=== PATIENT | male | born 1950 | race Caucasian/White ===

== ENCOUNTER 2017-08-14 13:19 | Inpatient (IN) ==
[2017-08-14] MEDS ORDERED: 0.9 % Sodium Chloride 1,000 ML IVC ONE (13:32)
--- NOTE | 2017-08-14 13:35 | Emergency Department Note ---
Disposition Clinical Impression: Hypotension, Frail elderly, Kidney stones, Pulmonary nodule, Pneumonia, Anemia , Renal insufficiency, Dehydration, Aortic aneurysm, Hematuria, Elevated troponin, Cerebrovascular disease Disposition: Admitted As Inpatient General Adult HPI - General Chief complaint: ED Weakness Stated complaint: Weakness Time Seen by Provider: 08/14/17 13:27 - History of Present Illness HPI Narrative: 66-year-old male reports emergency department with his relatives. Per report the patient usually lives in a fdc, he recently fell and fractured his left hip and went [facility] where they reportedly diagnosed pneumonia, surgery was performed on the hip on the left. The patient went back to the fdc, apparently he is feeling worse in the fdc called EMS, the family members report the patient has been weaker since his surgery. He reported he can usually feed himself with his right hand but is unable to do so now, EMS notes the patient's blood pressure was in the 70s on arrival. The family is concerned because the patient is unable to perform usual activities for him, significant weakness is reported. Recent pneumonia also a concern per the family, as well as a recent surgery for fractured hip. They report the patient would not allow a CAT scan of the head after the fall. They are concerned about the patient's general mental status. There is no history of bleeding. No reports of chest pain or shortness of breath coughing up blood or syncope. The patient usually has left upper extremity weakness status post previous CVA. The patient is somewhat demented per the family's history. - Related Data Home Medications Medication Instructions Recorded Confirmed Acetaminophen [Tylenol] 325 mg PO Q6HR PRN 08/14/17 08/14/17 Amoxicillin/Clavulanate [Augmentin] 875 mg PO BIDWM 08/14/17 08/14/17 Aspirin 81 mg PO DAILY 08/14/17 08/14/17 Atorvastatin [Lipitor] 40 mg PO HS 08/14/17 08/14/17 Clopidogrel [Plavix] 75 mg PO DAILY 08/14/17 08/14/17 Fluticasone/Salmeterol [Advair 1 puff IH BID 08/14/17 08/14/17 250-50 Diskus] Gabapentin [Neurontin] 300 mg PO BID 08/14/17 08/14/17 HYDROcodone/Acet 5/325 mg [[place] 1 tab PO Q6H PRN 08/14/17 08/14/17 5-325 mg] Insulin ASPART [NovoLOG] 0 unit SQ TID PRN 08/14/17 08/14/17 Ipratropium/Albuterol Neb [Duoneb] 3 ml IH Q6HR 08/14/17 08/14/17 Levofloxacin [Levaquin] 500 mg PO Q24H 08/14/17 08/14/17 Linezolid [Zyvox] 600 mg PO BID 08/14/17 08/14/17 Lisinopril [Zestril] 10 mg PO DAILY 08/14/17 08/14/17 Memantine HCl 10 mg PO BID 08/14/17 08/14/17 Nebivolol HCl [Bystolic] 10 mg PO DAILY 08/14/17 08/14/17 Oxybutynin Chloride [Ditropan Xl] 5 mg PO DAILY 08/14/17 08/14/17 Polyethylene Glycol 3350 [MiraLAX 17 gm PO DAILY 08/14/17 08/14/17 Powder Bulk 17.9 Oz] Tamsulosin [Flomax] 0.4 mg PO DAILY 08/14/17 08/14/17 Tramadol HCl [Ultram] 50 mg PO Q4H PRN 08/14/17 08/14/17 cloNIDine HCl [Clonidine HCl] 0.2 mg PO TID 08/14/17 08/14/17 diazePAM [Valium] 5 mg PO TID PRN 08/14/17 08/14/17 Allergies Allergy/AdvReac Type Severity Reaction Status Date / Time No Known Allergies Allergy Verified 06/22/15 23:58 All systems ED: reviewed and negative except as stated. Past Medical History - Past Medical History Medical history: Reports: COPD, CVA, dementia Surgical history: Reports: cholecystectomy Psychiatric history: Reports: anxiety, depression - Social History Smoking Status: Current every day smoker Smokeless Tobacco Status: No Alcohol use: Reports: none Drug use: Reports: none Physical Exam - General Limitations: other (Dementia) General appearance: alert, in no apparent distress - Head Head exam: atraumatic, normocephalic, normal inspection - Eye Eye exam: Present: normal appearance, PERRL, EOMI. Absent: scleral icterus, conjunctival injection, miosis, mydriasis - ENT ENT exam: normal exam, normal oropharynx, mucous membranes moist - Neck Neck exam: Present: normal inspection, full ROM, trachea midline - Chest Chest inspection: Present: normal inspection, symmetric chest wall rise. Absent : tenderness - Respiratory Respiratory exam: Present: normal lung sounds bilaterally. Absent: respiratory distress, wheezes, accessory muscle use, prolonged expiratory phase - Cardiovascular Cardiovascular exam: Present: regular rate, normal rhythm, normal heart sounds - Abdominal Exam Abdominal exam: Present: soft, Non-Tender, normal bowel sounds. Absent: tenderness, distention, guarding, rebound, rigidity, trauma - Extremities Exam Extremities exam: Present: full ROM, other (Post surgical scar left hip without bleeding or evidence of asia infection.). Absent: tenderness, normal capillary refill, pedal edema, joint swelling, calf tenderness - Expanded Lower Extremity Exam Neurovascular/Tendon exam: Absent: normal capillary refill, tendon deficit, extremity cold to touch, pallor - Back Exam Back exam: Present: normal inspection, full ROM. Absent: tenderness, CVA tenderness (R), CVA tenderness (L), vertebral tenderness - Neurological Exam Neurological exam: Present: alert, CN II-XII intact, motor sensory deficit ( Left upper extremity weakness noted, chronic per family.) - Psychiatric Psychiatric exam: Present: normal affect - Skin Skin exam: Present: warm, dry, intact, normal color. Absent: rash, cyanosis, diaphoresis, erythema, pallor, mottled Course Vital Signs Temperature 98.1 F 08/14/17 13:26 Pulse Rate 61 08/14/17 13:26 Respiratory Rate 12 08/14/17 13:26 Blood Pressure 97/58 08/14/17 13:26 O2 Sat by Pulse Oximetry 100 08/14/17 13:26 Temperature 98.1 F 08/14/17 13:26 Pulse Rate 78 08/14/17 16:10 Respiratory Rate 14 08/14/17 16:10 Blood Pressure 163/74 08/14/17 16:10 O2 Sat by Pulse Oximetry 96 08/14/17 16:10 Oxygen Delivery Oxygen Delivery Nasal Cannula Medical Decision Making - [facility] Narrative Medical decision making narrative: The patient is frail and elderly, he recently had hip surgery, he appears to have residual pneumonia, he has been hypotensive, there is an element of renal insufficiency and/or dehydration, he is anemic and has significant hematuria, the patient was given IV fluids, his initial blood pressure was in the 70s, subsequently a raised in the 110 range. He also has an elevated troponin. Aspirin was ordered as well as Zosyn and vancomycin and Levaquin. The patient has not been describing chest pain, he does have a history of cerebrovascular disease in the family is concerned regarding the patient's weakness and inability to swallow well. The patient appears to be stable. Based on his multiple comorbidities, recent hospitalization, multiple abnormal findings, and significant hypertension, I thought it be appropriate to admit the patient to the hospital. I discussed the case with the hospitalist on-call who has accepted the patient to their care. - Lab Data Lab results reviewed: Yes I reviewed the patient's lab results. Result diagrams: 08/14/17 14:01 08/14/17 14:01 Lab Results 08/14/17 08/14/17 08/14/17 Range/Units 13:29 14:01 14:01 WBC 7.0 (4.3-11.1) K/mcL RBC 3.41 L (4.19-5.50) M/mcL Hgb 10.2 L (12.9-16.9) g/dL Hct 31.1 L (37.5-50.1) % MCV 91.2 (83.0-100.0) fL MCH 29.9 (28.0-33.3) pg MCHC 32.8 (31.6-35.5) g/dL RDW 14.0 (11.5-14.5) % Plt Count 176 (140-400) K/mcL MPV 8.6 L (9.4-12.4) fL Immature Gran % 0.6 (0-4) % Seg Neutrophils % 74.5 % Lymphocytes % 12.8 % Monocytes % 8.8 % Eosinophils % 3.0 % Basophils % 0.3 % Neutrophils # 5.2 (1.6-8.9) K/mcL Lymphocytes # 0.9 (0.6-4.6) K/mcL Monocytes # 0.6 (0.0-1.3) K/mcL Eosinophils # 0.2 (0.0-0.6) K/mcL Basophils # 0.0 (0.0-0.2) K/mcL PT (9.4-12.1) Seconds INR APTT (26.0-36.0) Seconds Sodium 139 (136-145) mEq/L Potassium 4.2 (3.5-4.5) mEq/L Chloride 103 (98-109) mEq/L Carbon Dioxide 26 (19-29) mEq/L BUN 45 H (8-26) mg/dL Creatinine 1.85 H (0.72-1.25) mg/dL Est GFR ( Amer) 45 L (> 60) Est GFR (Non-Af Amer) 37 L (> 60) BUN/Creatinine Ratio 24 (6-26) Glucose 156 H (70-99) mg/dL POC Glucose 157 H (58-89) Calculated Osmolality 303 H (280-300) Lactic Acid (0.5-2.2) mmol/L Calcium 8.7 (8.6-10.8) mg/dL Total Bilirubin 0.7 (0.2-1.2) mg/dL AST 30 (5-34) Units/L ALT 10 (0-55) Units/L Alkaline Phosphatase 67 (38-126) Units/L Troponin I (0-0.03) ng/mL C-Reactive Protein (Less than 5) mg/L Serum Total Protein 6.3 (6.0-8.3) g/dL Albumin 2.7 L (3.5-5.0) g/dL Globulin 3.6 H (2.4-3.5) g/dL Albumin/Globulin Ratio 0.8 L (1.1-2.2) Urine Color (Yellow) Urine Clarity (Clear) Urine pH (5.0-8.0) pH Units Ur Specific [place] (1.010-1.025) Urine Protein (Neg-Trace) mg/dL Urine Glucose (UA) (Normal) mg/dL Urine Ketones (Negative) mg/dL Urine Blood (Negative) Urine Nitrite (Negative) Urine Bilirubin (Negative) Urine Urobilinogen (Normal) mg/dL Ur Leukocyte Esterase (Negative) Urine Microscopic RBC (0-3) per hpf Urine Microscopic WBC (0-3) per hpf Ur Squamous Epith Cells (None-Few) per lpf Urine Bacteria (None-Few) per hpf Hyaline Casts (None-Few) per lpf Ur Culture Indicated? (NO) 08/14/17 08/14/17 08/14/17 Range/Units 14:01 14:01 14:01 WBC (4.3-11.1) K/mcL RBC (4.19-5.50) M/mcL Hgb (12.9-16.9) g/dL Hct (37.5-50.1) % MCV (83.0-100.0) fL MCH (28.0-33.3) pg MCHC (31.6-35.5) g/dL RDW (11.5-14.5) % Plt Count (140-400) K/mcL MPV (9.4-12.4) fL Immature Gran % (0-4) % Seg Neutrophils % % Lymphocytes % % Monocytes % % Eosinophils % % Basophils % % Neutrophils # (1.6-8.9) K/mcL Lymphocytes # (0.6-4.6) K/mcL Monocytes # (0.0-1.3) K/mcL Eosinophils # (0.0-0.6) K/mcL Basophils # (0.0-0.2) K/mcL PT (9.4-12.1) Seconds INR APTT (26.0-36.0) Seconds Sodium (136-145) mEq/L Potassium (3.5-4.5) mEq/L Chloride (98-109) mEq/L Carbon Dioxide (19-29) mEq/L BUN (8-26) mg/dL Creatinine (0.72-1.25) mg/dL Est GFR ( Amer) (> 60) Est GFR (Non-Af Amer) (> 60) BUN/Creatinine Ratio (6-26) Glucose (70-99) mg/dL POC Glucose (58-89) Calculated Osmolality (280-300) Lactic Acid 1.0 (0.5-2.2) mmol/L Calcium (8.6-10.8) mg/dL Total Bilirubin (0.2-1.2) mg/dL AST (5-34) Units/L ALT (0-55) Units/L Alkaline Phosphatase (38-126) Units/L Troponin I 0.07 H* (0-0.03) ng/mL C-Reactive Protein 59 H (Less than 5) mg/L Serum Total Protein (6.0-8.3) g/dL Albumin (3.5-5.0) g/dL Globulin (2.4-3.5) g/dL Albumin/Globulin Ratio (1.1-2.2) Urine Color (Yellow) Urine Clarity (Clear) Urine pH (5.0-8.0) pH Units Ur Specific [place] (1.010-1.025) Urine Protein (Neg-Trace) mg/dL Urine Glucose (UA) (Normal) mg/dL Urine Ketones (Negative) mg/dL Urine Blood (Negative) Urine Nitrite (Negative) Urine Bilirubin (Negative) Urine Urobilinogen (Normal) mg/dL Ur Leukocyte Esterase (Negative) Urine Microscopic RBC (0-3) per hpf Urine Microscopic WBC (0-3) per hpf Ur Squamous Epith Cells (None-Few) per lpf Urine Bacteria (None-Few) per hpf Hyaline Casts (None-Few) per lpf Ur Culture Indicated? (NO) 08/14/17 08/14/17 Range/Units 14:01 14:27 WBC (4.3-11.1) K/mcL RBC (4.19-5.50) M/mcL Hgb (12.9-16.9) g/dL Hct (37.5-50.1) % MCV (83.0-100.0) fL MCH (28.0-33.3) pg MCHC (31.6-35.5) g/dL RDW (11.5-14.5) % Plt Count (140-400) K/mcL MPV (9.4-12.4) fL Immature Gran % (0-4) % Seg Neutrophils % % Lymphocytes % % Monocytes % % Eosinophils % % Basophils % % Neutrophils # (1.6-8.9) K/mcL Lymphocytes # (0.6-4.6) K/mcL Monocytes # (0.0-1.3) K/mcL Eosinophils # (0.0-0.6) K/mcL Basophils # (0.0-0.2) K/mcL PT 13.3 H (9.4-12.1) Seconds INR 1.2 APTT 31.9 (26.0-36.0) Seconds Sodium (136-145) mEq/L Potassium (3.5-4.5) mEq/L Chloride (98-109) mEq/L Carbon Dioxide (19-29) mEq/L BUN (8-26) mg/dL Creatinine (0.72-1.25) mg/dL Est GFR ( Amer) (> 60) Est GFR (Non-Af Amer) (> 60) BUN/Creatinine Ratio (6-26) Glucose (70-99) mg/dL POC Glucose (58-89) Calculated Osmolality (280-300) Lactic Acid (0.5-2.2) mmol/L Calcium (8.6-10.8) mg/dL Total Bilirubin (0.2-1.2) mg/dL AST (5-34) Units/L ALT (0-55) Units/L Alkaline Phosphatase (38-126) Units/L Troponin I (0-0.03) ng/mL C-Reactive Protein (Less than 5) mg/L Serum Total Protein (6.0-8.3) g/dL Albumin (3.5-5.0) g/dL Globulin (2.4-3.5) g/dL Albumin/Globulin Ratio (1.1-2.2) Urine Color Dark Yellow (Yellow) Urine Clarity Clear (Clear) Urine pH 6.0 (5.0-8.0) pH Units Ur Specific [place] 1.025 (1.010-1.025) Urine Protein 100 H (Neg-Trace) mg/dL Urine Glucose (UA) Normal (Normal) mg/dL Urine Ketones Trace H (Negative) mg/dL Urine Blood Large H (Negative) Urine Nitrite Negative (Negative) Urine Bilirubin Small H (Negative) Urine Urobilinogen Normal (Normal) mg/dL Ur Leukocyte Esterase Negative (Negative) Urine Microscopic RBC TNTC H (0-3) per hpf Urine Microscopic WBC 5-15 H (0-3) per hpf Ur Squamous Epith Cells Many H (None-Few) per lpf Urine Bacteria None Seen (None-Few) per hpf Hyaline Casts Few (None-Few) per lpf Ur Culture Indicated? NO (NO) - Radiology Data Radiology results reviewed: Yes I reviewed the patient's radiology results.
[2017-08-14 14:12] LABS: Basophils % 0.3 %; Eosinophils # 0.2 K/mcL (0.0-0.6); Hematocrit 31.1 % (37.5-50.1); Hemoglobin 10.2 g/dL (12.9-16.9); Immature Granulocytes % 0.6 % (0-4); Lymphocytes # 0.9 K/mcL (0.6-4.6); Lymphocytes % 12.8 %; Mean Corpuscular HGB Conc 32.8 g/dL (31.6-35.5); Mean Corpuscular Hemoglobin 29.9 pg (28.0-33.3); Mean Corpuscular Volume 91.2 fL (83.0-100.0); Mean Platelet Volume 8.6 fL (9.4-12.4); Monocytes # 0.6 K/mcL (0.0-1.3); Monocytes % 8.8 %; Neutrophils # 5.2 K/mcL (1.6-8.9); Platelet Count 176 K/mcL (140-400); Red Blood Count 3.41 M/mcL (4.19-5.50); Segmented Neutrophils % 74.5 %
[2017-08-14 14:19] LABS: INR 1.2; Prothrombin Time 13.3 Seconds (9.4-12.1)
[2017-08-14 14:22] LABS: Activated Partial Thrombo Time 31.9 Seconds (26.0-36.0)
[2017-08-14 14:24] LABS: Albumin 2.7 g/dL (3.5-5.0); Albumin/Globulin Ratio 0.8 (1.1-2.2); Bilirubin,Total 0.7 mg/dL (0.2-1.2); Calcium 8.7 mg/dL (8.6-10.8); Globulin 3.6 g/dL (2.4-3.5); Potassium 4.2 mEq/L (3.5-4.5); Total Protein 6.3 g/dL (6.0-8.3)
[2017-08-14 14:35] LABS: Bilirubin,Urine Small (Negative); Blood,Urine Large (Negative); Color,Urine Dark Yellow (Yellow); Glucose,Urine (UA) Normal (Normal); Ketones,Urine Trace mg/dL (Negative); Leukocyte Esterase,Urine Negative (Negative); Nitrite,Urine Negative (Negative); Protein,Urine 100 mg/dL (Neg-Trace); Specific Gravity,Urine 1.025 (1.010-1.025); Urobilinogen,Urine Normal (Normal)
[2017-08-14 14:36] LABS: Bacteria,Urine None Seen per hpf (None-Few); Hyaline Casts,Urine Few per lpf (None-Few); RBC,Urine TNTC per hpf (0-3); Squamous Epithelial Cell,Urine Many per lpf (None-Few)
[2017-08-14 14:41] LABS: Clarity,Urine Clear (Clear)
[2017-08-14] MEDS ORDERED: Piperacillin/Tazobactam 3.375 GM in D5% in Water (Mini-Bag+) 100 ML IVPB ONE (16:26)
[2017-08-14] MEDS ORDERED: Vancomycin 1,000 MG in D5% in Water 250 ML IVPB ONE (16:27)
[2017-08-14] MEDS ORDERED: Levofloxacin 750 MG/150 ML 750 MG/150 ML BAG IVPB ONE (16:27)
[2017-08-14] MEDS ORDERED: Aspirin 325 MG TABLET PO ONE (16:28)
[2017-08-14] MEDS ORDERED: diazePAM 5 MG TABLET PO ONE (16:40)
[2017-08-14] MEDS ORDERED: D5% in Water (Mini-Bag+) 100 ML IVPB ONE (19:06)
--- NOTE | 2017-08-14 21:33 | Internal Med History&Physical ---
Date of Encounter: 08/14/17 Time of Encounter: 21:29 Assessment and Plan (1) Acute encephalopathy Current visit: Yes Status: Acute Likely multifactorial given that patient has progressive dementia in setting of infection No one currently at bedside to confirm his mental status difference from baseline Head CT did not demonstrate any acute abnormalities We will rule out metabolic etiology with TSH, B12, folate, ammonia (2) Hospital-acquired pneumonia Current visit: Yes Status: Acute Unclear when he was admitted at [facility] for left hip fracture and treatment of pneumonia He was given vancomycin, Levaquin, Zosyn in the ED and cultures were collected We will continue Zosyn and Levaquin with renal dose due to renal insufficiency Chest CT did demonstrate left upper lobe posterior consolidation (3) History of CVA (cerebrovascular accident) Current visit: Yes Status: Chronic Patient's LUE weakness is currently as his baseline according to records Head CT did not show any acute abnormalities Continue on home aspirin, Lipitor, holding antihypertensives in setting of recent hypotension (4) COPD (chronic obstructive pulmonary disease) Current visit: Yes Status: Chronic Not currently in exacerbation at this time as patient denies any shortness of breath or sputum production We will support with supplemental oxygen, scheduled breathing treatments Steroids not indicated at this time Qualifiers: Qualified Code(s): J44.9 - Chronic obstructive pulmonary disease, unspecified (5) Elevated troponin Current visit: Yes Status: Acute Initial troponins were elevated at 0.07, likely due to demand ischemia in setting of infection We will trend troponins 2 He currently denies any chest pain or shortness of breath (6) Renal insufficiency Current visit: Yes Status: Chronic Creatinine initially 1.85, unclear what his baseline is as he has not had any creatinine since 2014 which was 1.28 We will hold his home lisinopril as he was also hypotensive He does appear mildly dry on exam, and was given fluid boluses in the ED; we will start maintenance hydration (7) DVT prophylaxis Current visit: Yes Status: Acute Heparin 5000 units twice a day Internal Medicine - H&P: HPI Chief complaint: AMS Admitted From: Long-term Nursing Facility Plans for Post Hospital Care: Transfer [facility] History of present illness: Mr. Marr is a 66 year old male who presents to emergency department with altered mental status. There is no one at bedside currently however ER presentation showed that he arrived with family. He does have history of dementia and is a poor historian. According to records, he did have recent left hip fracture which was repaired at [facility]. He developed pneumonia during that admission and it appears that he presents with a pneumonia again today. Of note, he does have a history of left upper extremity weakness due to a CVA in the past. Patient currently denies any pain other than mild left hip pain after surgery. He denies any shortness of breath, fevers, chills, nausea, vomiting. Past Med Surg Social Fam HX - Past Medical History Medical history: COPD, CVA, dementia Psychiatric history: anxiety, depression - Past Surgical History Surgical History: cholecystectomy - Social History Smoking Status: Current every day smoker Smokeless Tobacco Status: No Alcohol use: none Drug use: none Internal Medicine - H&P: Meds Acetaminophen [Tylenol] 325 mg PO Q6HR PRN 08/14/17 [History] Amoxicillin/Clavulanate [Augmentin] 875 mg PO BIDWM 08/14/17 [History] Aspirin 81 mg PO DAILY 08/14/17 [History] Atorvastatin [Lipitor] 40 mg PO HS 08/14/17 [History] Clopidogrel [Plavix] 75 mg PO DAILY 08/14/17 [History] Fluticasone/Salmeterol [Advair 250-50 Diskus] 1 puff IH BID 08/14/17 [History] Gabapentin [Neurontin] 300 mg PO BID 08/14/17 [History] HYDROcodone/Acet 5/325 mg [[place] 5-325 mg] 1 tab PO Q6H PRN 08/14/17 [History] Insulin ASPART [NovoLOG] 0 unit SQ TID PRN 08/14/17 [History] Ipratropium/Albuterol Neb [Duoneb] 3 ml IH Q6HR 08/14/17 [History] Levofloxacin [Levaquin] 500 mg PO Q24H 08/14/17 [History] Linezolid [Zyvox] 600 mg PO BID 08/14/17 [History] Lisinopril [Zestril] 10 mg PO DAILY 08/14/17 [History] Memantine HCl 10 mg PO BID 08/14/17 [History] Nebivolol HCl [Bystolic] 10 mg PO DAILY 08/14/17 [History] Oxybutynin Chloride [Ditropan Xl] 5 mg PO DAILY 08/14/17 [History] Polyethylene Glycol 3350 [MiraLAX Powder Bulk 17.9 Oz] 17 gm PO DAILY 08/14/17 [ History] Tamsulosin [Flomax] 0.4 mg PO DAILY 08/14/17 [History] Tramadol HCl [Ultram] 50 mg PO Q4H PRN 08/14/17 [History] cloNIDine HCl [Clonidine HCl] 0.2 mg PO TID 08/14/17 [History] diazePAM [Valium] 5 mg PO TID PRN 08/14/17 [History] 3 Allergy/AdvReac Type Severity Reaction Status Date / Time No Known Allergies Allergy Verified 06/22/15 23:58 All Systems PM: A 10-system review of systems was performed and is negative for pertinent findings except as documented above in the HPI. - Constitutional Constitutional: no chills, no fever(s), no night sweats - EENT Eyes: no change in vision, no discharge, no pain, no photophobia Ears: no ear discharge, no ear pain, no tinnitus Nose, mouth and throat: no dysphagia, no nasal discharge, no neck pain, no sore throat - Cardiovascular Cardiovascular ROS IM: no chest pain, no diaphoresis, no dyspnea, no lightheadedness, no palpitations, no syncope - Respiratory Respiratory: no cough, no dyspnea, no wheezing, no excessive phlegm production - Gastrointestinal Gastrointestinal: no abdominal pain, no diarrhea, no hematemesis, no hematochezia, no melena, no nausea, no vomiting - Musculoskeletal Musculoskeletal ROS IM: arthralgias (left hip s/p surgery), no numbness, no tingling - Integumentary Integumentary IM: no rash, no unusual bruising - Neurological Neurological ROS: no confusion, no convulsions, no focal weakness, no numbness, no tingling, no tremor(s) - Hematologic/Lymphatic Hematologic/Lymphatic: no easy bruising - Constitutional Vitals: Temp Pulse Resp BP Pulse Ox 97.5 F L 71 17 116/66 93 08/14/17 20:43 08/14/17 20:43 08/14/17 20:43 08/14/17 20:43 08/14/17 20:43 General appearance: Present: A&O X 2 (does not know year), pleasant, no acute distress, answers questions appropriately - Head Head exam: Present: atraumatic, normocephalic - Eye Eye exam: Present: PERRL, conjuntiva pink, sclera anicteric. Absent: EOMI ( does not follow my finger with eyes) - Neck Neck exam general surgery: Present: supple, trachea midline. Absent: lymphadenopathy - Respiratory Respiratory exam: Present: decreased breath sounds. Absent: accessory muscle use, rales, rhonchi, wheezes - Cardiovascular Cardiovascular exam: Present: RRR, +S1, +S2. Absent: diastolic murmur, gallop, rubs, systolic murmur - GI/Abdominal GI/Abdominal exam: Present: normal bowel sounds, soft, no peritoneal signs. Absent: distended, tenderness - Extremities Exam Extremities exam: Present: warm, radial pulses palpable and symmetrical. Absent : calf tenderness, cyanotic, pedal edema - Neurological Exam Neurological exam: Present: alert, speech deficit (difficult to understand, but suspect at his baseline s/p CVA). Absent: CN II-XII intact (he does not follow my finger with eyes and is does have weakness of left side compared to right which is chronic s/p CVA), oriented X3, no focal deficits, pronater drift, facial droop - Skin Skin exam: Present: dry, intact Internal Med - H&P Results - Labs CBC & Chem 7: 08/14/17 14:01 08/14/17 14:01
[2017-08-14] MEDS ORDERED: Naloxone 0.4 MG/ML INJ IVP PRN (21:37)
[2017-08-14] MEDS ORDERED: Ondansetron ODT 4 MG TAB.RAPDIS SL PRN (21:37)
[2017-08-14] MEDS ORDERED: Acetaminophen 325 MG TABLET PO PRN (21:37)
[2017-08-14] MEDS ORDERED: Albuterol 2.5 MG/3 ML NEBULIZER IH PRN (21:43)
[2017-08-14] MEDS ORDERED: *HR* HYDROcodone/Acet 5/325 mg TABLET PO PRN (21:45)
[2017-08-14] MEDS ORDERED: D5% in Water 1,000 ML IVC PRN (21:46)
[2017-08-14] MEDS ORDERED: *HR* Dextrose 50 % in Water (Syg) 50 ML SYRINGE IVP PRN (21:46)
[2017-08-14] MEDS ORDERED: Dextrose Gel 15 GM PO PRN ×2 (21:46)
[2017-08-14] MEDS: Levofloxacin 750 MG/150 ML 750 MG/150 ML BAG IVPB SCH (22:15)
[2017-08-15] MEDS: Ipratropium/Albuterol Neb 3 ML IH SCH ×5 (00:09→20:58)
[2017-08-15] MEDS: 0.9 % Sodium Chloride 1,000 ML IVC SCH ×2 (01:26→21:40)
[2017-08-15] MEDS: Piperacillin/Tazobactam 3.375 GM in D5% in Water (Mini-Bag+) 100 ML IVPB SCH ×4 (01:43→23:41)
--- NOTE | 2017-08-15 04:10 | Event Note ---
Date of Encounter: 08/15/17 Time of Encounter: 04:10 Presenting examined with medical engineer. Agree with this assessment and plan
[2017-08-15] MEDS: *HR* Heparin 5,000 UNIT/ML VIAL SQ SCH ×2 (04:48→17:03)
[2017-08-15 05:51] LABS: Basophils % 0.3 %; Eosinophils # 0.2 K/mcL (0.0-0.6); Hematocrit 29.6 % (37.5-50.1); Hemoglobin 9.8 g/dL (12.9-16.9); Immature Granulocytes % 0.5 % (0-4); Lymphocytes # 0.8 K/mcL (0.6-4.6); Lymphocytes % 12.7 %; Mean Corpuscular HGB Conc 33.1 g/dL (31.6-35.5); Mean Corpuscular Hemoglobin 30.1 pg (28.0-33.3); Mean Corpuscular Volume 90.8 fL (83.0-100.0); Mean Platelet Volume 8.5 fL (9.4-12.4); Monocytes # 0.5 K/mcL (0.0-1.3); Monocytes % 8.7 %; Neutrophils # 4.5 K/mcL (1.6-8.9); Platelet Count 167 K/mcL (140-400); Red Blood Count 3.26 M/mcL (4.19-5.50); Red Cell Distribution Width 13.6 % (11.5-14.5); Segmented Neutrophils % 74.8 %
[2017-08-15 06:03] LABS: BUN/Creatinine Ratio 32 (6-26); Blood Urea Nitrogen 36 mg/dL (8-26); Calcium 8.3 mg/dL (8.6-10.8); Carbon Dioxide 26 mEq/L (19-29); Chloride 105 mEq/L (98-109); Glucose 153 mg/dL (70-99); Osmolality,Calculated 295 (280-300); Potassium 3.8 mEq/L (3.5-4.5); Sodium 137 mEq/L (136-145); eGFR For African Americans > 60 (> 60); eGFR For Non-African Americans > 60 (> 60)
[2017-08-15 06:24] LABS: Thyroid Stimulating Hormone 0.187 mcIU/mL (0.350-4.840)
[2017-08-15 06:39] LABS: Folate 4.9 ng/mL (7.0-31.4)
[2017-08-15] MEDS: Insulin LISPRO 300 UNITS/3 ML VIAL SQ SCH ×4 (07:49→21:33)
[2017-08-15] MEDS: Aspirin 81 MG TAB.CHEW PO SCH (07:50)
[2017-08-15] MEDS: Gabapentin 300 MG CAPSULE PO SCH ×2 (07:50→21:43)
--- NOTE | 2017-08-15 13:45 | Internal Med Progress Note ---
Date of Encounter: 08/15/17 Time of Encounter: 11:15 - Assessment and plan (1) Pneumonia Current Visit: Yes Status: Suspected Assessment and plan: Suspected healthcare associated pneumonia. Continue broad-spectrum antibiotics. Follow culture results. Continue vancomycin and Zosyn and Levaquin. Monitor vital signs. Moderate risk for complications. Qualifiers: Pneumonia type: due to methicillin-resistant Staphylococcus aureus (MRSA) Laterality: right Lung location: upper lobe of lung Qualified Code(s): J15.212 - Pneumonia due to Methicillin resistant Staphylococcus aureus (2) Acute encephalopathy Current Visit: Yes Status: Acute Assessment and plan: Improving. Patient is more alert today. Continue treating underlying causes. (3) COPD (chronic obstructive pulmonary disease) Current Visit: Yes Status: Chronic Assessment and plan: No acute exacerbation. Continue bronchodilators as needed. Qualifiers: COPD type: unspecified COPD Qualified Code(s): J44.9 - Chronic obstructive pulmonary disease, unspecified (4) DVT prophylaxis Current Visit: Yes Status: Acute Assessment and plan: With subcutaneous heparin (5) Elevated troponin Current Visit: Yes Status: Acute Assessment and plan: Mild elevation. Has remained stable. Likely from demand ischemia. No indication for further workup at this time (6) History of CVA (cerebrovascular accident) Current Visit: Yes Status: Chronic Assessment and plan: With left-sided weakness. Continue home medications including aspirin and statin. (7) Renal insufficiency Current Visit: Yes Status: Resolved Assessment and plan: Creatinine is normal today. Likely acute kidney injury. We will renally dose antibiotics. Monitor renal function. (8) Essential hypertension Current Visit: Yes Status: Chronic Assessment and plan: Blood pressure is better today. We will resume home medications. - Subjective Interval history: Patient is awake and alert. Denies any chest pain or shortness of breath at this time. Ate part of his breakfast today. No nausea or vomiting. - Constitutional Vitals: Temp Pulse Resp BP Pulse Ox 98.9 F 100 18 143/72 97 08/15/17 11:07 08/15/17 11:07 08/15/17 11:12 08/15/17 11:07 08/15/17 11:12 General appearance: Present: A&O X 2, pleasant, no acute distress, answers questions appropriately - ENT ENT exam: Present: mucous membranes dry - Neck Neck exam general surgery: Present: supple, trachea midline. Absent: lymphadenopathy - Respiratory Respiratory exam: Present: CTAB. Absent: accessory muscle use, rales, rhonchi, wheezes - Cardiovascular Cardiovascular exam: Present: RRR, +S1, +S2. Absent: diastolic murmur, gallop, rubs, systolic murmur - GI/Abdominal GI/Abdominal exam: Present: normal bowel sounds, soft, no peritoneal signs. Absent: distended, tenderness - Extremities Exam Extremities exam: Present: warm, radial pulses palpable and symmetrical. Absent : calf tenderness, cyanotic, pedal edema - Neurological Exam Neurological exam: Present: alert, speech deficit (At baseline). Absent: facial droop Additional comments: Left-sided weakness compared to right - Skin Skin exam: Present: dry, intact Internal Medicine: Result - Labs CBC & Chem 7: 08/15/17 05:43 08/15/17 05:43 Labs: Short CBC 08/15/17 Range/Units 05:43 WBC 6.1 (4.3-11.1) K/mcL Hgb 9.8 L (12.9-16.9) g/dL Hct 29.6 L (37.5-50.1) % Plt Count 167 (140-400) K/mcL Neutrophils # 4.5 (1.6-8.9) K/mcL BMP 08/15/17 05:43 Sodium 137 Potassium 3.8 Chloride 105 Carbon Dioxide 26 BUN 36 H Creatinine 1.12 Glucose 153 H Calcium 8.3 L Cardiac Enzymes 08/15/17 Range/Units 05:43 Troponin I 0.04 H* (0-0.03) ng/mL - ABG Interpretation ABG results: PT/INR, D-dimer PT 13.3 Seconds (9.4-12.1) H 08/14/17 14:01 Consult Discharge Plan - Plan Referrals: Rafi De León MD [Primary Care Provider] -
[2017-08-15] MEDS: Vancomycin 1,250 MG in D5% in Water 250 ML IVPB SCH (14:53)
[2017-08-15] MEDS: cloNIDine HCl 0.1 MG TABLET PO SCH ×2 (14:55→21:44)
[2017-08-15] MEDS: diazePAM 5 MG TABLET PO PRN ×2 (17:06→21:48)
[2017-08-16] MEDS: Vancomycin 1,250 MG in D5% in Water 250 ML IVPB SCH (02:49)
[2017-08-16] MEDS: *HR* Heparin 5,000 UNIT/ML VIAL SQ SCH ×2 (05:28→18:06)
[2017-08-16] MEDS: Ipratropium/Albuterol Neb 3 ML IH SCH ×4 (05:38→21:12)
[2017-08-16] MEDS: Budesonide/Formoterol 80/4.5 MDI IH SCH ×2 (07:20→18:06)
[2017-08-16] MEDS: 0.9 % Sodium Chloride 1,000 ML IVC SCH (07:20)
[2017-08-16] MEDS ORDERED: Aminoglycoside Consult 1 EACH MC ONE (08:49)
[2017-08-16] MEDS: Gabapentin 300 MG CAPSULE PO SCH ×2 (08:54→20:51)
[2017-08-16] MEDS: cloNIDine HCl 0.1 MG TABLET PO SCH ×3 (08:54→20:51)
[2017-08-16] MEDS: Insulin LISPRO 300 UNITS/3 ML VIAL SQ SCH ×4 (08:54→20:49)
[2017-08-16] MEDS: Aspirin 81 MG TAB.CHEW PO SCH (08:54)
[2017-08-16] MEDS: Piperacillin/Tazobactam 3.375 GM in D5% in Water (Mini-Bag+) 100 ML IVPB SCH (08:55)
--- NOTE | 2017-08-16 10:42 | Internal Med Progress Note ---
Date of Encounter: 08/16/17 Time of Encounter: 10:00 - Assessment and plan (1) Pneumonia Current Visit: Yes Status: Acute Assessment and plan: Blood cultures have been negative. We will begin to de-escalate antibiotics. Continue aspiration precautions. Speech therapy consulted's for swallow evaluation. Recommend barium swallow study tomorrow. We will schedule this. moderate risk for complications. Qualifiers: Pneumonia type: due to unspecified organism Laterality: right Lung location: upper lobe of lung Qualified Code(s): J18.1 - Lobar pneumonia, unspecified organism (2) Acute encephalopathy Current Visit: Yes Status: Resolved Assessment and plan: Patient appears to be at baseline at this time (3) COPD (chronic obstructive pulmonary disease) Current Visit: Yes Status: Chronic Assessment and plan: Saturating well on 2 L O2 supplementation. Continue bronchodilators as needed. Qualifiers: COPD type: unspecified COPD Qualified Code(s): J44.9 - Chronic obstructive pulmonary disease, unspecified (4) DVT prophylaxis Current Visit: Yes Status: Acute Assessment and plan: With subcutaneous heparin (5) Elevated troponin Current Visit: Yes Status: Acute (6) History of CVA (cerebrovascular accident) Current Visit: Yes Status: Chronic Assessment and plan: With residual left-sided weakness. PTOT consulted. (7) Renal insufficiency Current Visit: Yes Status: Resolved (8) Essential hypertension Current Visit: Yes Status: Chronic Assessment and plan: Blood pressure is well controlled. - Subjective Interval history: Patient is currently sleeping. Awakes to verbal commands. Complains of low back pain which is chronic. Was able to eat some breakfast today but did have some difficulty swallowing. No fever reported overnight - Constitutional Vitals: Temp Pulse Resp BP Pulse Ox 97.8 F 74 16 130/65 98 08/16/17 07:44 08/16/17 07:44 08/16/17 07:44 08/16/17 07:44 08/16/17 07:44 General appearance: Present: pleasant, no acute distress, answers questions appropriately - ENT ENT exam: Present: mucous membranes dry - Neck Neck exam general surgery: Present: supple, trachea midline. Absent: lymphadenopathy - Respiratory Respiratory exam: Present: prolonged expiratory phase. Absent: accessory muscle use, rales, rhonchi, wheezes - Cardiovascular Cardiovascular exam: Present: RRR, +S1, +S2. Absent: diastolic murmur, gallop, rubs, systolic murmur - GI/Abdominal GI/Abdominal exam: Present: normal bowel sounds, soft, no peritoneal signs. Absent: distended, tenderness - Extremities Exam Extremities exam: Present: warm, radial pulses palpable and symmetrical. Absent : calf tenderness, cyanotic, pedal edema - Neurological Exam Neurological exam: Absent: facial droop, speech deficit Additional comments: Somnolent but easily awakes. Chronic left-sided weakness - Skin Skin exam: Present: dry, intact Internal Medicine: Result - Labs CBC & Chem 7: 08/15/17 05:43 08/15/17 05:43 - ABG Interpretation ABG results: PT/INR, D-dimer PT 13.3 Seconds (9.4-12.1) H 08/14/17 14:01 Consult Discharge Plan - Plan Referrals: Rafi De León MD [Primary Care Provider] -
[2017-08-16] MEDS: Cyanocobalamin (B-12) 1,000 MCG/ML VIAL SQ SCH (12:30)
[2017-08-16] MEDS: MetroNIDAZOLE 500 MG/100 ML 500 MG/100 ML BAG IVPB SCH ×2 (15:59→23:53)
[2017-08-16] MEDS: Levofloxacin 750 MG/150 ML 750 MG/150 ML BAG IVPB SCH (20:53)
[2017-08-16] MEDS: diazePAM 5 MG TABLET PO PRN ×2 (20:59→23:53)
[2017-08-16] MEDS: traMADol 50 MG TABLET PO PRN (20:59)
[2017-08-17 03:26] LABS: Basophils % 0.4 %; Eosinophils # 0.2 K/mcL (0.0-0.6); Eosinophils % 3.4 %; Hematocrit 26.9 % (37.5-50.1); Hemoglobin 8.7 g/dL (12.9-16.9); Immature Granulocytes % 0.4 % (0-4); Lymphocytes # 0.8 K/mcL (0.6-4.6); Lymphocytes % 13.9 %; Mean Corpuscular HGB Conc 32.3 g/dL (31.6-35.5); Mean Corpuscular Hemoglobin 29.7 pg (28.0-33.3); Mean Corpuscular Volume 91.8 fL (83.0-100.0); Mean Platelet Volume 8.6 fL (9.4-12.4); Monocytes # 0.5 K/mcL (0.0-1.3); Monocytes % 8.7 %; Neutrophils # 4.1 K/mcL (1.6-8.9); Platelet Count 164 K/mcL (140-400); Red Blood Count 2.93 M/mcL (4.19-5.50); Red Cell Distribution Width 13.7 % (11.5-14.5); Segmented Neutrophils % 73.2 %
[2017-08-17 03:39] LABS: BUN/Creatinine Ratio 22 (6-26); Calcium 8.2 mg/dL (8.6-10.8); Carbon Dioxide 25 mEq/L (19-29); Chloride 105 mEq/L (98-109); Glucose 150 mg/dL (70-99); Osmolality,Calculated 289 (280-300); Potassium 3.9 mEq/L (3.5-4.5); Sodium 137 mEq/L (136-145); eGFR For African Americans > 60 (> 60); eGFR For Non-African Americans > 60 (> 60)
[2017-08-17 03:40] LABS: Blood Urea Nitrogen 19 mg/dL (8-26)
[2017-08-17] MEDS: Ipratropium/Albuterol Neb 3 ML IH SCH ×2 (04:22→11:09)
[2017-08-17] MEDS: traMADol 50 MG TABLET PO PRN ×2 (04:59→09:45)
[2017-08-17] MEDS: diazePAM 5 MG TABLET PO PRN (04:59)
[2017-08-17] MEDS: *HR* Heparin 5,000 UNIT/ML VIAL SQ SCH (04:59)
--- NOTE | 2017-08-17 06:28 | Electrocardiograph Report ---
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
[2017-08-17] MEDS: Gabapentin 300 MG CAPSULE PO SCH (07:57)
[2017-08-17] MEDS: cloNIDine HCl 0.1 MG TABLET PO SCH (07:57)
[2017-08-17] MEDS: Aspirin 81 MG TAB.CHEW PO SCH (07:57)
[2017-08-17] MEDS: Cyanocobalamin (B-12) 1,000 MCG/ML VIAL SQ SCH (07:57)
[2017-08-17] MEDS: MetroNIDAZOLE 500 MG/100 ML 500 MG/100 ML BAG IVPB SCH (07:57)
[2017-08-17] MEDS: Insulin LISPRO 300 UNITS/3 ML VIAL SQ SCH ×2 (07:58→11:35)
[2017-08-17] MEDS ORDERED: Budesonide/Formoterol 80/4.5 MDI IH SCH (10:00)
--- NOTE | 2017-08-17 11:20 | Discharge Summary ---
Date of Encounter: 08/17/17 Time of Encounter: 11:14 - Discharge Diagnosis (1) Pneumonia Priority: Primary Status: Acute Qualifiers: Pneumonia type: due to unspecified organism Laterality: right Lung location: upper lobe of lung Qualified Code(s): J18.1 - Lobar pneumonia, unspecified organism (2) Acute encephalopathy Priority: Secondary Status: Resolved (3) COPD (chronic obstructive pulmonary disease) Priority: Secondary Status: Chronic Qualifiers: COPD type: unspecified COPD Qualified Code(s): J44.9 - Chronic obstructive pulmonary disease, unspecified (4) DVT prophylaxis Priority: Secondary Status: Acute (5) Elevated troponin Priority: Secondary Status: Acute (6) History of CVA (cerebrovascular accident) Priority: Secondary Status: Chronic (7) Renal insufficiency Priority: Secondary Status: Resolved (8) Essential hypertension Priority: Secondary Status: Chronic (9) Dysphagia Priority: Secondary Status: Acute Qualifiers: Dysphagia type: oropharyngeal phase Qualified Code(s): R13.12 - Dysphagia, oropharyngeal phase (10) Diabetes mellitus Priority: Secondary Status: Acute Qualifiers: Diabetes mellitus type: type 2 Diabetes mellitus complication status: with hyperglycemia Diabetes mellitus half-way insulin use: with ocean transportation intermediary use Qualified Code(s): E11.65 - Type 2 diabetes mellitus with hyperglycemia; 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; Z79.4 - care home (current) use of insulin ; Z79.4 - care home (current) use of insulin; 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 - Discharge Medications Prescriptions: Cyanocobalamin (B-12) [Vitamin B12] 1,000 mcg SQ DAILY #7 vial Cyanocobalamin (B-12) [Vitamin B12] 1,000 mcg PO DAILY #30 tablet Folic Acid 1 mg PO DAILY #30 tablet HYDROcodone/Acet 5/325 mg [Fisher 5-325 mg] 1 tab PO Q6H PRN #14 tablet PRN Reason: Pain Levofloxacin [Levaquin] 500 mg PO Q24H #5 tablet metroNIDAZOLE [Flagyl] 500 mg PO TID #15 tablet Tramadol HCl [Ultram] 50 mg PO Q4H PRN #14 tablet PRN Reason: Pain Home Medications: Acetaminophen [Tylenol] 325 mg PO Q6HR PRN 08/14/17 [History] Aspirin 81 mg PO DAILY 08/14/17 [History] Atorvastatin [Lipitor] 40 mg PO HS 08/14/17 [History] Clopidogrel [Plavix] 75 mg PO DAILY 08/14/17 [History] Fluticasone/Salmeterol [Advair 250-50 Diskus] 1 puff IH BID 08/14/17 [History] Gabapentin [Neurontin] 300 mg PO BID 08/14/17 [History] Insulin ASPART [NovoLOG] 0 unit SQ TID PRN 08/14/17 [History] Ipratropium/Albuterol Neb [Duoneb] 3 ml IH Q6HR 08/14/17 [History] Lisinopril [Zestril] 10 mg PO DAILY 08/14/17 [History] Memantine HCl 10 mg PO BID 08/14/17 [History] Nebivolol HCl [Bystolic] 10 mg PO DAILY 08/14/17 [History] Oxybutynin Chloride [Ditropan Xl] 5 mg PO DAILY 08/14/17 [History] Polyethylene Glycol 3350 [MiraLAX Powder Bulk 17.9 Oz] 17 gm PO DAILY 08/14/17 [ History] Tamsulosin [Flomax] 0.4 mg PO DAILY 08/14/17 [History] cloNIDine HCl [Clonidine HCl] 0.2 mg PO TID 08/14/17 [History] diazePAM [Valium] 5 mg PO TID PRN 08/14/17 [History] Cyanocobalamin (B-12) [Vitamin B12] 1,000 mcg PO DAILY #30 tablet 08/17/17 [Rx] Cyanocobalamin (B-12) [Vitamin B12] 1,000 mcg SQ DAILY #7 vial 08/17/17 [Rx] Folic Acid 1 mg PO DAILY #30 tablet 08/17/17 [Rx] HYDROcodone/Acet 5/325 mg [Fisher 5-325 mg] 1 tab PO Q6H PRN #14 tablet 08/17/17 [Rx] Levofloxacin [Levaquin] 500 mg PO Q24H #5 tablet 08/17/17 [Rx] Tramadol HCl [Ultram] 50 mg PO Q4H PRN #14 tablet 08/17/17 [Rx] metroNIDAZOLE [Flagyl] 500 mg PO TID #15 tablet 08/17/17 [Rx] Allergies/Adverse Reactions: 3 Allergy/AdvReac Type Severity Reaction Status Date / Time No Known Allergies Allergy Verified 06/22/15 23:58 Date of admission: 08/15/17 04:11 Primary care physician: Rafi De León MD Discharging clinician: Maria Eugenia Murdock Anticipated date of discharge: 08/17/17 - Patient Status Disposition: Transfer SNF Condition: Fair Functional capacity at discharge: bed bound Overall status at discharge: patient is progressing back to baseline - Discharge Instructions Follow Up With: Rafi De León MD [Primary Care Provider] - (Patient will follow up with PCP at the [facility]) - Diet and Activity Activity: as per physical therapy Diet: low fat, low cholesterol, low salt diet, other (Mechanically altered diet with honey thickened liquids; feed upright at 90 degrees ) Hospital course: Mr. Marr is a 66 year old male patient with a history of prior CVA with left- sided weakness, recent left hip fracture status post surgery was hospitalized here with acute encephalopathy. This was believed to be due to hospital- acquired pneumonia. However patient had been on broad spectrum antibiotics including Levaquin, Zyvox and Augmentin at home following his discharge from the hospital for possible pneumonia. He did have acute kidney injury with creatinine of 1.5 on presentation. He was also hypotensive. With IV hydration and his symptoms improved and his kidney injury resolved. His acute encephalopathy has also resolved. Chest CT showed small amount of opacity posteriorly and 2 pulmonary nodules less than 8 mm in size. Blood cultures have been negative. He did not have leukocytosis or fever. He may have had aspiration pneumonia with underlying dysphagia. He was evaluated by speech therapy and placed on mechanically altered diet. He can continue speech therapy at rehabilitation where he is currently residing. He will also complete a short antibiotic course for possible aspiration pneumonia. He is clinically stable for discharge back to halfway facility. - Time Spent with Patient Total time spent providing and/or coordinating discharge services: Greater than 30 minutes (35 min) - Constitutional Vitals: Temp Pulse Resp BP Pulse Ox 97.9 F 78 18 112/62 97 08/17/17 07:37 08/17/17 07:37 08/17/17 07:37 08/17/17 07:37 08/17/17 07:37 General appearance: Present: cooperative, A&O X 2, pleasant, no acute distress, answers questions appropriately - Neck Neck exam general surgery: Present: supple, trachea midline. Absent: lymphadenopathy - Respiratory Respiratory exam: Present: CTAB. Absent: accessory muscle use, rales, rhonchi, wheezes - Cardiovascular Cardiovascular exam: Present: RRR, +S1, +S2. Absent: diastolic murmur, gallop, rubs, systolic murmur - GI/Abdominal GI/Abdominal exam: Present: normal bowel sounds, soft, no peritoneal signs. Absent: distended, tenderness - Extremities Exam Extremities exam: Present: warm, radial pulses palpable and symmetrical. Absent : calf tenderness, cyanotic, pedal edema - Neurological Exam Neurological exam: Present: alert, no focal deficits. Absent: facial droop, speech deficit - Skin Skin exam: Present: dry, intact
[2017-08-17] MEDS ORDERED: D5 IVPB ONE (11:21)
[2017-08-17] MEDS ORDERED: FOLIC ACID IVPB ONE (11:21)
[2017-08-17] MEDS ORDERED: WATER IVPB ONE (11:21)
--- NOTE | 2017-08-17 11:31 | Physician Discharge Referral ---
ExtendedCare Referral Info Provider in Charge after Transfer: PCP Institutional Level of Care: Skilled - Diagnosis (1) Pneumonia Priority: Primary Status: Acute (2) Acute encephalopathy Priority: Secondary Status: Resolved (3) COPD (chronic obstructive pulmonary disease) Priority: Secondary Status: Chronic (4) DVT prophylaxis Priority: Secondary Status: Acute (5) Elevated troponin Priority: Secondary Status: Acute (6) History of CVA (cerebrovascular accident) Priority: Secondary Status: Chronic (7) Renal insufficiency Priority: Secondary Status: Resolved (8) Essential hypertension Priority: Secondary Status: Chronic (9) Dysphagia Priority: Secondary Status: Acute (10) Diabetes mellitus Priority: Secondary Status: Acute - Transfer Medications Prescriptions: Cyanocobalamin (B-12) [Vitamin B12] 1,000 mcg SQ DAILY #7 vial Cyanocobalamin (B-12) [Vitamin B12] 1,000 mcg PO DAILY #30 tablet Folic Acid 1 mg PO DAILY #30 tablet HYDROcodone/Acet 5/325 mg [[place] 5-325 mg] 1 tab PO Q6H PRN #14 tablet PRN Reason: Pain Levofloxacin [Levaquin] 500 mg PO Q24H #5 tablet metroNIDAZOLE [Flagyl] 500 mg PO TID #15 tablet Tramadol HCl [Ultram] 50 mg PO Q4H PRN #14 tablet PRN Reason: Pain Home Medications: Acetaminophen [Tylenol] 325 mg PO Q6HR PRN 08/14/17 [History] Aspirin 81 mg PO DAILY 08/14/17 [History] Atorvastatin [Lipitor] 40 mg PO HS 08/14/17 [History] Clopidogrel [Plavix] 75 mg PO DAILY 08/14/17 [History] Fluticasone/Salmeterol [Advair 250-50 Diskus] 1 puff IH BID 08/14/17 [History] Gabapentin [Neurontin] 300 mg PO BID 08/14/17 [History] Insulin ASPART [NovoLOG] 0 unit SQ TID PRN 08/14/17 [History] Ipratropium/Albuterol Neb [Duoneb] 3 ml IH Q6HR 08/14/17 [History] Lisinopril [Zestril] 10 mg PO DAILY 08/14/17 [History] Memantine HCl 10 mg PO BID 08/14/17 [History] Nebivolol HCl [Bystolic] 10 mg PO DAILY 08/14/17 [History] Oxybutynin Chloride [Ditropan Xl] 5 mg PO DAILY 08/14/17 [History] Polyethylene Glycol 3350 [MiraLAX Powder Bulk 17.9 Oz] 17 gm PO DAILY 08/14/17 [ History] Tamsulosin [Flomax] 0.4 mg PO DAILY 08/14/17 [History] cloNIDine HCl [Clonidine HCl] 0.2 mg PO TID 08/14/17 [History] diazePAM [Valium] 5 mg PO TID PRN 08/14/17 [History] Cyanocobalamin (B-12) [Vitamin B12] 1,000 mcg PO DAILY #30 tablet 08/17/17 [Rx] Cyanocobalamin (B-12) [Vitamin B12] 1,000 mcg SQ DAILY #7 vial 08/17/17 [Rx] Folic Acid 1 mg PO DAILY #30 tablet 08/17/17 [Rx] HYDROcodone/Acet 5/325 mg [[place] 5-325 mg] 1 tab PO Q6H PRN #14 tablet 08/17/17 [Rx] Levofloxacin [Levaquin] 500 mg PO Q24H #5 tablet 08/17/17 [Rx] Tramadol HCl [Ultram] 50 mg PO Q4H PRN #14 tablet 08/17/17 [Rx] metroNIDAZOLE [Flagyl] 500 mg PO TID #15 tablet 08/17/17 [Rx] Allergies/Adverse Reactions: 3 Allergy/AdvReac Type Severity Reaction Status Date / Time No Known Allergies Allergy Verified 06/22/15 23:58 - Respiratory Orders Oxygen / L per min (Keep sats >88%) Smoking Cessation: Smoking cessation has been advised. For more information, call the [place] Tobacco Quit Line at 2-238-WQQN-NOW. - Ancillary Orders May consult with Dentist, Gyroscopic Instrument Mechanic, Internal Medicine Physician Assistant PRN - Advance Directives Code Status: Full Code - Mobility Orders Other (per PT eval) - Rehabiliation Orders Rehab Potential: Fair Rehab Orders: Evaluation for Physical Therapy, Evaluation for Occupational Therapy, Evaluation for Speech Therapy - Treatments Skin tear care topically daily PRN per policy - Diet Orders Mechanical Soft (Mechanically altered diet with honey thickened liquids; feed upright at 90 degrees), No Concentrated Sweets (Diabetic), Cardiac CERTIFICATION: I certify that the transfer of the above named patient to an Extended Care Facility is necessary for the continuing treatment of the diagnosis listed. The above information is true and accurate reflection of patient's current condition. Confidential - Redisclosure prohibited without a patient's written consent.
[2017-08-17 11:39] VITALS: BP 115/68
[2017-08-17] MEDS ORDERED: metroNIDAZOLE 500 MG TABLET PO SCH (15:00)
[2017-08-17] MEDS ORDERED: levoFLOXacin 750 MG TABLET PO SCH (22:00)
[2017-08-17] MEDS ORDERED: Levofloxacin 750 MG/150 ML 750 MG/150 ML BAG IVPB SCH (22:00)
== END 2017-08-17 15:35 | DRG 177 ==
LOC: 2ANU 13:19 → EMEROO 13:19 → 2ANU 20:05
PROVIDERS: ADMIT Internal Medicine; ATTEND Internal Medicine

== ENCOUNTER 2017-08-22 12:30 | Inpatient (IN) ==
--- NOTE | 2017-08-22 12:44 | Emergency Department Note ---
Disposition Clinical Impression: COSME (acute kidney injury) UTI (urinary tract infection) Qualifiers: Urinary tract infection type: site unspecified Hematuria presence: without hematuria Qualified Code(s): N39.0 - Urinary tract infection, site not specified Disposition: Admitted As Inpatient Condition: Good Time of Disposition: 15:31 General Adult HPI - General Chief complaint: ED Altered Mental Status Stated complaint: AMS, BRENT Time Seen by Provider: 08/22/17 12:38 Source: patient, EMS Mode of arrival: EMS Limitations: no limitations Nursing Notes Reviewed: Yes Vital Signs Reviewed: Yes - History of Present Illness HPI Narrative: 66-year-old male brought in by EMS for chief complaint of altered mental status and shortness of breath. The patient has end-stage Alzheimer's and not able to provide any history. All history given was from EMS. Patient is a and O 2 and states he has no complaints or pain at this time. According to EMS patient was sent from a [facility]. They were told he had "distant heart and lung sounds". He also stated that he had altered mental status from his baseline. No family is here to confirm or deny these claims. Patient was given 1 DuoNeb treatment by EMS on his way to the emergency department. - Related Data Home Medications Medication Instructions Recorded Confirmed Acetaminophen [Tylenol] 325 mg PO Q6HR PRN 08/14/17 08/22/17 Aspirin 81 mg PO DAILY 08/14/17 08/22/17 Atorvastatin [Lipitor] 40 mg PO HS 08/14/17 08/22/17 Clopidogrel [Plavix] 75 mg PO DAILY 08/14/17 08/22/17 Fluticasone/Salmeterol [Advair 1 puff IH BID 08/14/17 08/22/17 250-50 Diskus] Gabapentin [Neurontin] 300 mg PO BID 08/14/17 08/22/17 Insulin ASPART [NovoLOG] 2 - 10 unit SQ TID PRN 08/14/17 08/22/17 Ipratropium/Albuterol Neb [Duoneb] 3 ml IH Q6HR 08/14/17 08/22/17 Lisinopril [Zestril] 10 mg PO BID 08/14/17 08/22/17 Memantine HCl 10 mg PO BID 08/14/17 08/22/17 Nebivolol HCl [Bystolic] 10 mg PO DAILY 08/14/17 08/22/17 Oxybutynin Chloride [Ditropan Xl] 5 mg PO DAILY 08/14/17 08/22/17 Polyethylene Glycol 3350 [MiraLAX 17 gm PO DAILY 08/14/17 08/22/17 Powder Bulk 17.9 Oz] Tamsulosin [Flomax] 0.4 mg PO DAILY 08/14/17 08/22/17 cloNIDine HCl [Clonidine HCl] 0.2 mg PO TID 08/14/17 08/22/17 diazePAM [Valium] 5 mg PO TID PRN 08/14/17 08/22/17 Previous Rx's Medication Instructions Recorded Cyanocobalamin (B-12) [Vitamin B12] 1,000 mcg PO DAILY #30 tablet 08/17/17 Folic Acid 1 mg PO DAILY #30 tablet 08/17/17 HYDROcodone/Acet 5/325 mg [[place] 1 tab PO Q6H PRN #14 tablet 08/17/17 5-325 mg] Levofloxacin [Levaquin] 500 mg PO Q24H #5 tablet 08/17/17 Tramadol HCl [Ultram] 50 mg PO Q4H PRN #14 tablet 08/17/17 Allergies Allergy/AdvReac Type Severity Reaction Status Date / Time No Known Allergies Allergy Verified 06/22/15 23:58 Limitations: ROS unobtainable due to patients medical condition Past Medical History - Past Medical History Attestation: Yes The following information was validated with the patient. Medical history: Reports: COPD, CVA, dementia Surgical history: Reports: cholecystectomy Psychiatric history: Reports: anxiety, depression - Social History Smoking Status: Current every day smoker Smokeless Tobacco Status: No Alcohol use: Reports: none Drug use: Reports: none Physical Exam - General Limitations: altered mental status General appearance: alert (X2), in no apparent distress - Head Head exam: atraumatic, normocephalic, normal inspection - Eye Eye exam: Present: normal appearance. Absent: scleral icterus, conjunctival injection - Chest Chest inspection: Present: normal inspection, symmetric chest wall rise. Absent : tenderness, rash - Respiratory Respiratory exam: Present: other (Diffuse rhonchi noted in the anterior posterior phillips). Absent: respiratory distress - Cardiovascular Cardiovascular exam: Present: regular rate, normal rhythm, normal heart sounds - Abdominal Exam Abdominal exam: Present: Non-Tender, distention. Absent: guarding, rebound, rigidity - Extremities Exam Extremities exam: Present: normal inspection, full ROM - Neurological Exam Neurological exam: Present: alert, other (Patient is oriented 2) - Psychiatric Psychiatric exam: Present: normal affect, normal mood - Skin Skin exam: Present: other (Multiple superficial ecchymosis noted in bilateral upper extremities) Course Course Narrative: 66-year-old male transferred from [facility] facility for altered mental status. Patient does have coarse breath sounds and the treatment would do an absent complete a chest x-ray. Patient also has abdominal distention on exam. We are unsure if this is baseline or not before we obtain a CT of the abdomen and pelvis. We will obtain basic lab work as well. Unsure if this mental state is his baseline. We will scan his head with a CT without contrast as well. Disposition pending results. Patient alert and oriented 2 in the room stable vital signs at this time. - Reevaluation(s) Reevaluation #1: Patient's UA shows urinary tract infection. BMP shows acute kidney injury. We will start with fluid resuscitation and admit the patient to the hospitalist. The hospitalist Vern Preston accepts the patient. Time: 15:31 Vital Signs Temperature 97.9 F 08/22/17 12:34 Pulse Rate 98 08/22/17 12:34 Respiratory Rate 22 08/22/17 12:34 Blood Pressure 129/96 08/22/17 12:34 O2 Sat by Pulse Oximetry 96 08/22/17 12:34 Temperature 97.2 F L 08/22/17 17:59 Pulse Rate 94 08/22/17 17:59 Respiratory Rate 18 08/22/17 17:59 Blood Pressure 118/65 08/22/17 17:59 O2 Sat by Pulse Oximetry 94 08/22/17 17:59 Oxygen Delivery Oxygen Delivery Nasal Cannula Medical Decision Making - Lab Data Result diagrams: 08/22/17 13:10 08/22/17 13:10 Lab Results 08/22/17 08/22/17 08/22/17 Range/Units 13:10 13:10 13:10 WBC 7.0 (4.3-11.1) K/mcL RBC 3.29 L (4.19-5.50) M/mcL Hgb 9.9 L (12.9-16.9) g/dL Hct 30.9 L (37.5-50.1) % MCV 93.9 (83.0-100.0) fL MCH 30.1 (28.0-33.3) pg MCHC 32.0 (31.6-35.5) g/dL RDW 14.4 (11.5-14.5) % Plt Count 257 D (140-400) K/mcL MPV 8.6 L (9.4-12.4) fL Immature Gran % 0.6 (0-4) % Seg Neutrophils % 75.6 % Lymphocytes % 14.7 % Monocytes % 6.9 % Eosinophils % 2.1 % Basophils % 0.1 % Neutrophils # 5.3 (1.6-8.9) K/mcL Lymphocytes # 1.0 (0.6-4.6) K/mcL Monocytes # 0.5 (0.0-1.3) K/mcL Eosinophils # 0.2 (0.0-0.6) K/mcL Basophils # 0.0 (0.0-0.2) K/mcL PT 14.3 H (9.4-12.1) Seconds INR 1.3 ABG pH (7.32-7.45) pH Units ABG pCO2 (35-45) mmHg ABG pO2 (85-104) mmHg ABG HCO3 (21-27) mEq/L ABG Total CO2 (20-26) mEq/L ABG O2 Saturation (95-98) % ABG Base Excess (-2 to 3) mEq/L Sodium 136 (136-145) mEq/L Potassium 4.1 (3.5-4.5) mEq/L Chloride 103 (98-109) mEq/L Carbon Dioxide 27 (19-29) mEq/L BUN 17 (8-26) mg/dL Creatinine 1.49 H (0.72-1.25) mg/dL Est GFR ( Amer) 57 L (> 60) Est GFR (Non-Af Amer) 47 L (> 60) BUN/Creatinine Ratio 11 (6-26) Glucose 179 H (70-99) mg/dL Calculated Osmolality 288 (280-300) Lactic Acid (0.5-2.2) mmol/L Calcium 8.5 L (8.6-10.8) mg/dL Total Bilirubin 0.7 (0.2-1.2) mg/dL Direct Bilirubin 0.3 (0.0-0.5) mg/dL Indirect Bilirubin 0.4 (0.0-1.2) mg/dL AST 43 H (5-34) Units/L ALT 33 (0-55) Units/L Alkaline Phosphatase 90 (38-126) Units/L Ammonia (18-72) mcmol/L Troponin I (0-0.03) ng/mL Serum Total Protein 5.4 L (6.0-8.3) g/dL Albumin 2.7 L (3.5-5.0) g/dL Globulin 2.7 (2.4-3.5) g/dL Albumin/Globulin Ratio 1.0 L (1.1-2.2) Urine Color (Yellow) Urine Clarity (Clear) Urine pH (5.0-8.0) pH Units Ur Specific [place] (1.010-1.025) Urine Protein (Neg-Trace) mg/dL Urine Glucose (UA) (Normal) mg/dL Urine Ketones (Negative) mg/dL Urine Blood (Negative) Urine Nitrite (Negative) Urine Bilirubin (Negative) Urine Urobilinogen (Normal) mg/dL Ur Leukocyte Esterase (Negative) Urine Microscopic RBC (0-3) per hpf Urine Microscopic WBC (0-3) per hpf Ur Squamous Epith Cells (None-Few) per lpf Urine Bacteria (None-Few) per hpf Hyaline Casts (None-Few) per lpf Ur Culture Indicated? (NO) 08/22/17 08/22/17 08/22/17 Range/Units 13:10 13:10 13:10 WBC (4.3-11.1) K/mcL RBC (4.19-5.50) M/mcL Hgb (12.9-16.9) g/dL Hct (37.5-50.1) % MCV (83.0-100.0) fL MCH (28.0-33.3) pg MCHC (31.6-35.5) g/dL RDW (11.5-14.5) % Plt Count (140-400) K/mcL MPV (9.4-12.4) fL Immature Gran % (0-4) % Seg Neutrophils % % Lymphocytes % % Monocytes % % Eosinophils % % Basophils % % Neutrophils # (1.6-8.9) K/mcL Lymphocytes # (0.6-4.6) K/mcL Monocytes # (0.0-1.3) K/mcL Eosinophils # (0.0-0.6) K/mcL Basophils # (0.0-0.2) K/mcL PT (9.4-12.1) Seconds INR ABG pH (7.32-7.45) pH Units ABG pCO2 (35-45) mmHg ABG pO2 (85-104) mmHg ABG HCO3 (21-27) mEq/L ABG Total CO2 (20-26) mEq/L ABG O2 Saturation (95-98) % ABG Base Excess (-2 to 3) mEq/L Sodium (136-145) mEq/L Potassium (3.5-4.5) mEq/L Chloride (98-109) mEq/L Carbon Dioxide (19-29) mEq/L BUN (8-26) mg/dL Creatinine (0.72-1.25) mg/dL Est GFR ( Amer) (> 60) Est GFR (Non-Af Amer) (> 60) BUN/Creatinine Ratio (6-26) Glucose (70-99) mg/dL Calculated Osmolality (280-300) Lactic Acid 1.9 (0.5-2.2) mmol/L Calcium (8.6-10.8) mg/dL Total Bilirubin (0.2-1.2) mg/dL Direct Bilirubin (0.0-0.5) mg/dL Indirect Bilirubin (0.0-1.2) mg/dL AST (5-34) Units/L ALT (0-55) Units/L Alkaline Phosphatase (38-126) Units/L Ammonia 9 L (18-72) mcmol/L Troponin I 0.01 (0-0.03) ng/mL Serum Total Protein (6.0-8.3) g/dL Albumin (3.5-5.0) g/dL Globulin (2.4-3.5) g/dL Albumin/Globulin Ratio (1.1-2.2) Urine Color (Yellow) Urine Clarity (Clear) Urine pH (5.0-8.0) pH Units Ur Specific [place] (1.010-1.025) Urine Protein (Neg-Trace) mg/dL Urine Glucose (UA) (Normal) mg/dL Urine Ketones (Negative) mg/dL Urine Blood (Negative) Urine Nitrite (Negative) Urine Bilirubin (Negative) Urine Urobilinogen (Normal) mg/dL Ur Leukocyte Esterase (Negative) Urine Microscopic RBC (0-3) per hpf Urine Microscopic WBC (0-3) per hpf Ur Squamous Epith Cells (None-Few) per lpf Urine Bacteria (None-Few) per hpf Hyaline Casts (None-Few) per lpf Ur Culture Indicated? (NO) 08/22/17 08/22/17 Range/Units 13:23 14:27 WBC (4.3-11.1) K/mcL RBC (4.19-5.50) M/mcL Hgb (12.9-16.9) g/dL Hct (37.5-50.1) % MCV (83.0-100.0) fL MCH (28.0-33.3) pg MCHC (31.6-35.5) g/dL RDW (11.5-14.5) % Plt Count (140-400) K/mcL MPV (9.4-12.4) fL Immature Gran % (0-4) % Seg Neutrophils % % Lymphocytes % % Monocytes % % Eosinophils % % Basophils % % Neutrophils # (1.6-8.9) K/mcL Lymphocytes # (0.6-4.6) K/mcL Monocytes # (0.0-1.3) K/mcL Eosinophils # (0.0-0.6) K/mcL Basophils # (0.0-0.2) K/mcL PT (9.4-12.1) Seconds INR ABG pH 7.40 (7.32-7.45) pH Units ABG pCO2 42 (35-45) mmHg ABG pO2 73 L (85-104) mmHg ABG HCO3 26 (21-27) mEq/L ABG Total CO2 28 H (20-26) mEq/L ABG O2 Saturation 94 L (95-98) % ABG Base Excess 1 (-2 to 3) mEq/L Sodium (136-145) mEq/L Potassium (3.5-4.5) mEq/L Chloride (98-109) mEq/L Carbon Dioxide (19-29) mEq/L BUN (8-26) mg/dL Creatinine (0.72-1.25) mg/dL Est GFR ( Amer) (> 60) Est GFR (Non-Af Amer) (> 60) BUN/Creatinine Ratio (6-26) Glucose (70-99) mg/dL Calculated Osmolality (280-300) Lactic Acid (0.5-2.2) mmol/L Calcium (8.6-10.8) mg/dL Total Bilirubin (0.2-1.2) mg/dL Direct Bilirubin (0.0-0.5) mg/dL Indirect Bilirubin (0.0-1.2) mg/dL AST (5-34) Units/L ALT (0-55) Units/L Alkaline Phosphatase (38-126) Units/L Ammonia (18-72) mcmol/L Troponin I (0-0.03) ng/mL Serum Total Protein (6.0-8.3) g/dL Albumin (3.5-5.0) g/dL Globulin (2.4-3.5) g/dL Albumin/Globulin Ratio (1.1-2.2) Urine Color Yellow (Yellow) Urine Clarity Cloudy A (Clear) Urine pH 6.0 (5.0-8.0) pH Units Ur Specific [place] 1.017 (1.010-1.025) Urine Protein 30 H (Neg-Trace) mg/dL Urine Glucose (UA) Normal (Normal) mg/dL Urine Ketones Negative (Negative) mg/dL Urine Blood Large H (Negative) Urine Nitrite Positive A (Negative) Urine Bilirubin Negative (Negative) Urine Urobilinogen Normal (Normal) mg/dL Ur Leukocyte Esterase Small H (Negative) Urine Microscopic RBC 50-100 H (0-3) per hpf Urine Microscopic WBC 3-5 H (0-3) per hpf Ur Squamous Epith Cells Many H (None-Few) per lpf Urine Bacteria None Seen (None-Few) per hpf Hyaline Casts None Seen (None-Few) per lpf Ur Culture Indicated? YES A (NO) Attestation Statement - Attestation Attestation: I examined this patient and my medical decision-making was reviewed with the Resident Physician. I agree with the documented findings, disposition and treatment plan as described except to the extent set forth below. Possible altered mental status patient is a sign per family. Subsequent phone of urinary tract infection. We will start therapy with ceftriaxone, admitted for, carried urinary tract infection of bed confined [facility] patient without indwelling catheter.
[2017-08-22] MEDS ORDERED: Ipratropium/Albuterol Neb 3 ML IH ONE (12:54)
[2017-08-22 13:23] LABS: Basophils % 0.1 %; Eosinophils # 0.2 K/mcL (0.0-0.6); Eosinophils % 2.1 %; Hematocrit 30.9 % (37.5-50.1); Hemoglobin 9.9 g/dL (12.9-16.9); Immature Granulocytes % 0.6 % (0-4); Lymphocytes % 14.7 %; Mean Corpuscular Hemoglobin 30.1 pg (28.0-33.3); Mean Corpuscular Volume 93.9 fL (83.0-100.0); Mean Platelet Volume 8.6 fL (9.4-12.4); Monocytes # 0.5 K/mcL (0.0-1.3); Monocytes % 6.9 %; Neutrophils # 5.3 K/mcL (1.6-8.9); Platelet Count 257 K/mcL (140-400); Red Blood Count 3.29 M/mcL (4.19-5.50); Red Cell Distribution Width 14.4 % (11.5-14.5); Segmented Neutrophils % 75.6 %
[2017-08-22 13:26] LABS: ABG Base Excess 1 mEq/L (-2 to 3); ABG HCO3 26 mEq/L (21-27); ABG Oxygen Saturation 94 % (95-98); ABG PCO2 42 mmHg (35-45); ABG PO2 73 mmHg (85-104); ABG TCO2 28 mEq/L (20-26)
[2017-08-22 13:31] LABS: INR 1.3; Prothrombin Time 14.3 Seconds (9.4-12.1)
[2017-08-22 13:37] LABS: Albumin 2.7 g/dL (3.5-5.0); Bilirubin,Direct 0.3 mg/dL (0.0-0.5); Bilirubin,Indirect 0.4 mg/dL (0.0-1.2); Bilirubin,Total 0.7 mg/dL (0.2-1.2); Calcium 8.5 mg/dL (8.6-10.8); Globulin 2.7 g/dL (2.4-3.5); Potassium 4.1 mEq/L (3.5-4.5); Total Protein 5.4 g/dL (6.0-8.3)
[2017-08-22] MEDS ORDERED: 0.9 % Sodium Chloride 1,000 ML IVC ONE (14:22)
[2017-08-22 14:36] LABS: Bilirubin,Urine Negative (Negative); Blood,Urine Large (Negative); Clarity,Urine Cloudy (Clear); Color,Urine Yellow (Yellow); Glucose,Urine (UA) Normal (Normal); Ketones,Urine Negative (Negative); Leukocyte Esterase,Urine Small (Negative); Nitrite,Urine Positive (Negative); Protein,Urine 30 mg/dL (Neg-Trace); Specific Gravity,Urine 1.017 (1.010-1.025); Urobilinogen,Urine Normal (Normal)
[2017-08-22 14:38] LABS: Bacteria,Urine None Seen per hpf (None-Few); Hyaline Casts,Urine None Seen per lpf (None-Few); RBC,Urine 50-100 per hpf (0-3); Squamous Epithelial Cell,Urine Many per lpf (None-Few)
[2017-08-22] MEDS ORDERED: Naloxone 0.4 MG/ML INJ IVP PRN (17:50)
[2017-08-22] MEDS ORDERED: Ondansetron 4 MG/2 ML VIAL IVP PRN (17:50)
[2017-08-22] MEDS ORDERED: D5% in Water 1,000 ML IVC PRN (18:02)
[2017-08-22] MEDS ORDERED: Dextrose Gel 15 GM PO PRN ×2 (18:02)
[2017-08-22] MEDS ORDERED: *HR* Dextrose 50 % in Water (Syg) 50 ML SYRINGE IVP PRN (18:02)
[2017-08-22] MEDS ORDERED: traMADol 50 MG TABLET PO PRN (18:06)
[2017-08-22] MEDS ORDERED: *HR* HYDROcodone/Acet 5/325 mg TABLET PO PRN (18:06)
--- NOTE | 2017-08-22 18:43 | Internal Med History&Physical ---
<Vern Preston - Last Filed: 08/22/17 19:34> Date of Encounter: 08/22/17 Time of Encounter: 17:00 Assessment and Plan (1) UTI (urinary tract infection) Current visit: Yes Status: Acute U/A indicative for UTI on admission today. Increase in AMS could be due to UTI dx. Pt. also has COSME w/GFR of 47 and creatinine of 1.49. IVPB rocephin 1,000 mg daily and Azithromycin 500 mg for infection coverage. Pt. is currently not sepsis criteria. IV fluids to be used judiciously d/t current GFR of 47 and COSME. Monitor I&O and f/u labs. Will monitor pt. for signs of increasing infection. Qualifiers: Urinary tract infection type: site unspecified Hematuria presence: without hematuria Qualified Code(s): N39.0 - Urinary tract infection, site not specified (2) COSME (acute kidney injury) Current visit: Yes Status: Acute COSME. Pt. has hx of CKD. Creatinine 1.49 and GFR 47 today. IV fluids to be used judiciously. Will avoid nephrotoxins. Pts. U/A indicative for UTI. IVPB rocephin 1,000 mg daily and Azithromycin 500 mg daily for UTI infection. (3) HTN (hypertension) Current visit: Yes Status: Chronic Hx of chronic HTN. Monitor pt. and VS. continue lisinopril and Bystolic. Qualifiers: Hypertension type: essential hypertension Qualified Code(s): I10 - Essential (primary) hypertension (4) HLD (hyperlipidemia) Current visit: Yes Status: Chronic Hx of chronic HLD. Lipid panel in a.m. labs. Continue Lipitor. Qualifiers: Hyperlipidemia type: pure hypercholesterolemia Qualified Code(s): E78.00 - Pure hypercholesterolemia, unspecified; E78.0 - Pure hypercholesterolemia (5) Dementia Current visit: Yes Status: Chronic Hx of chronic Alzheimer's-related dementia. Late-stage. Falls/safety precautions. Continue Memantine. Qualifiers: Dementia type: Alzheimer's disease Alzheimer's disease onset: late-onset Dementia behavioral disturbance: without behavioral disturbance Qualified Code (s): G30.1 - Alzheimer's disease with late onset; F02.80 - Dementia in other diseases classified elsewhere without behavioral disturbance; F02.80 - Dementia in other diseases classified elsewhere without behavioral disturbance; F02.80 - Dementia in other diseases classified elsewhere without behavioral disturbance (6) COPD (chronic obstructive pulmonary disease) Current visit: Yes Status: Chronic Hx of chronic COPD. Patient's lungs clear on auscultation. Will continue DuoNebs Q6 PRN. Supplemental O2 w/titration and SpO2 monitoring. Qualifiers: COPD type: emphysema Emphysema type: unspecified Qualified Code(s): J43.9 - Emphysema, unspecified (7) Anemia Current visit: Yes Status: Chronic Hx of chronic anemia w/B12 deficiency. B12 level in a.m. labs. B12 1,000 mcg IM once. Hgb 9.9 and Hct 30.9 today. 10.2 and 31.1 on 08/14/17. Fecal hemoccult ordered. 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 Aspirations precautions w/meals and nectar-thickened diet. Falls/safety precautions. (9) DVT prophylaxis Current visit: Yes Status: Acute Heparin 5,000 units SQ Q12 for DVT prophylaxis. Internal Medicine - H&P: HPI Chief complaint: AMS/SOB Admitted From: Emergency Dept Plans for Post Hospital Care: Home History of present illness: Mr. Marr is a 66 year old male with medical hx of COPD, previous CVA in 2008 , HTN, HLD, and Alzheimer's related dementia presents from the ED with chief complaint of altered mental status and shortness of breath. Patient is a resident of [place] and is altered with residual speech effects and mentation from previous CVA according to family. Pt. is able to understand conversation and respond with limitations. Reports recent fx of left hip and pneumonia but denies any fever, chills, nausea, vomiting, changes in vision, unusual bleeding , chest pain, palpitations, abdominal pain, pre-syncope, or syncope. Past Med Surg Social Fam HX - Past Medical History Source: patient, old records reviewed, obtained from family Medical history: COPD, CVA (2009), dementia Psychiatric history: anxiety, depression - Past Surgical History Surgical History: cholecystectomy, other (Tonsillectomy) - Social History Smoking Status: Former smoker Packs per day: 2 PPD - Reports quitting 3 years ago Smokeless Tobacco Status: No Alcohol use: none Drug use: none Current living situation: Assisted Living Activity Level: Independent ambulation, Uses cane/walker Recent Out of Country Travel Within the Last 8 Weeks: No Exposure or Possible Exposure to Illness During Travel: No - Family History Father Race: Family Member Ethnicity: Non- Living Status: Age at : 60 Cause of : Cancer (type unknown) Hx Family Cancer: Yes Mother Race: Family Member Ethnicity: Non- Living Status: Age at : 70 Cause of : Emphysema Hx Family Respiratory Disorders: Yes (Emphysema) Brother Race: Family Member Ethnicity: Non- Living Status: Still Living Hx Family Medical Disorders: No Sister Race: Family Member Ethnicity: Non- Living Status: Still Living Hx Family Endocrine Disorder: Yes (DM) Internal Medicine - H&P: Meds Acetaminophen [Tylenol] 325 mg PO Q6HR PRN 08/14/17 [History] Aspirin 81 mg PO DAILY 08/14/17 [History] Atorvastatin [Lipitor] 40 mg PO HS 08/14/17 [History] Clopidogrel [Plavix] 75 mg PO DAILY 08/14/17 [History] Fluticasone/Salmeterol [Advair 250-50 Diskus] 1 puff IH BID 08/14/17 [History] Gabapentin [Neurontin] 300 mg PO BID 08/14/17 [History] Insulin ASPART [NovoLOG] 2 - 10 unit SQ TID PRN 08/14/17 [History] Ipratropium/Albuterol Neb [Duoneb] 3 ml IH Q6HR 08/14/17 [History] Lisinopril [Zestril] 10 mg PO BID 08/14/17 [History] Memantine HCl 10 mg PO BID 08/14/17 [History] Nebivolol HCl [Bystolic] 10 mg PO DAILY 08/14/17 [History] Oxybutynin Chloride [Ditropan Xl] 5 mg PO DAILY 08/14/17 [History] Polyethylene Glycol 3350 [MiraLAX Powder Bulk 17.9 Oz] 17 gm PO DAILY 08/14/17 [ History] Tamsulosin [Flomax] 0.4 mg PO DAILY 08/14/17 [History] cloNIDine HCl [Clonidine HCl] 0.2 mg PO TID 08/14/17 [History] diazePAM [Valium] 5 mg PO TID PRN 08/14/17 [History] Cyanocobalamin (B-12) [Vitamin B12] 1,000 mcg PO DAILY #30 tablet 08/17/17 [Rx] Folic Acid 1 mg PO DAILY #30 tablet 08/17/17 [Rx] HYDROcodone/Acet 5/325 mg [Eucha 5-325 mg] 1 tab PO Q6H PRN #14 tablet 08/17/17 [Rx] Levofloxacin [Levaquin] 500 mg PO Q24H #5 tablet 08/17/17 [Rx] Tramadol HCl [Ultram] 50 mg PO Q4H PRN #14 tablet 08/17/17 [Rx] 3 Allergy/AdvReac Type Severity Reaction Status Date / Time No Known Allergies Allergy Verified 06/22/15 23:58 All Systems PM: A 10-system review of systems was performed and is negative for pertinent findings except as documented above in the HPI. - Constitutional Constitutional: as per HPI, falls, no chills, no fever(s), no night sweats - EENT Eyes: no change in vision, no discharge, no pain, no photophobia Ears: no ear discharge, no ear pain, no tinnitus Nose, mouth and throat: no dysphagia, no nasal discharge, no neck pain, no sore throat - Breasts Breasts: as per HPI - Cardiovascular Cardiovascular ROS IM: as per HPI, dyspnea, no chest pain, no diaphoresis, no lightheadedness, no palpitations, no syncope - Respiratory Respiratory: as per HPI, cough, dyspnea - Gastrointestinal Gastrointestinal: no abdominal pain, no diarrhea, no hematemesis, no hematochezia, no melena, no nausea, no vomiting - Genitourinary Genitourinary ROS male: as per HPI - Musculoskeletal Musculoskeletal ROS IM: as per HPI, other (Pain in left hip r/t recent fx), no numbness, no tingling - Integumentary Integumentary IM: no rash, no unusual bruising - Neurological Neurological ROS: as per HPI, abnormal speech, confusion, frequent falls - Psychiatric Psychiatric: as per HPI - Endocrine Endocrine IM: as per HPI - Hematologic/Lymphatic Hematologic/Lymphatic: no easy bruising - Allergic/Immunologic Allergic/Immunologic: as per HPI - Constitutional Vitals: Temp Pulse Resp BP Pulse Ox 97.2 F L 94 18 118/65 94 08/22/17 17:59 08/22/17 17:59 08/22/17 17:59 08/22/17 17:59 08/22/17 17:59 General appearance: Present: cooperative, A&O X 1, pleasant, no acute distress, answers questions appropriately (With several attempts) - Head Head exam: Present: atraumatic, normocephalic - Eye Eye exam: Present: PERRL, conjuntiva pink, sclera anicteric Pupils: Present: PERRL - ENT ENT exam: Present: normal exam - Neck Neck exam general surgery: Present: supple, trachea midline. Absent: lymphadenopathy - Respiratory Respiratory exam: Present: CTAB. Absent: accessory muscle use, rales, rhonchi, wheezes - Cardiovascular Cardiovascular exam: Present: RRR, +S1, +S2. Absent: diastolic murmur, gallop, rubs, systolic murmur - GI/Abdominal GI/Abdominal exam: Present: normal bowel sounds, soft, no peritoneal signs. Absent: distended, tenderness - Rectal Rectal exam: Present: deferred - Additional comments: exam deferred. - Extremities Exam Extremities exam: Present: warm, radial pulses palpable and symmetrical. Absent : calf tenderness, cyanotic, pedal edema - Back Exam Back exam: Present: normal inspection - Neurological Exam Neurological exam: Present: alert, altered, speech deficit. Absent: pronater drift, facial droop - Psychiatric Psychiatric exam: Present: flat affect - Skin Skin exam: Present: dry, intact Internal Med - H&P Results - Labs CBC & Chem 7: 08/22/17 13:10 08/22/17 13:10 - EKG Data EKG shows normal: sinus rhythm Rate: normal - EKG Data Prior EKG available for review: yes When compared to previous EKG: there is no significant change Interpretation IM: normal EKG EKG comments: 08/22/17 18:49 EKG dated 08/14/17 shows sinus rhythm. EKG dated 08/22/17 sinus rhythm and normal ECG. - Diagnostic Studies Chest x-ray Additional comments: Impressions Chest/Abdomen X-ray 08/22/17 12:39 IMPRESSION: Chest: Mild bibasilar airspace disease could represent atelectasis or pneumonia. Abdomen: Findings may represent ileus versus distal obstruction. Moderate to large stool burden, particularly within the rectum. Oral contrast from a prior study extends to the level of the rectum. D/ / Jori Smith MD / Jori Smith MD Interpreting Provider: Jori Smith MD Abdominal x-ray Additional comments: Impressions Chest/Abdomen X-ray 08/22/17 12:39 IMPRESSION: Chest: Mild bibasilar airspace disease could represent atelectasis or pneumonia. Abdomen: Findings may represent ileus versus distal obstruction. Moderate to large stool burden, particularly within the rectum. Oral contrast from a prior study extends to the level of the rectum. D/ / Jori Smith MD / Jori Smith MD Interpreting Provider: Jori Smith MD CT scan - head Additional comments: Impressions Head CT 08/22/17 12:39 IMPRESSION: Remote insult with encephalomalacia in the right parietal, occipital and posterior temporal regions. Mild small vessel ischemic changes bilaterally No acute abnormality otherwise D/ / Trell Peña / Trell Peña Interpreting Provider: Trell Peña CT scan - abdomen Additional comments: Impressions Abdomen/Pelvis CT 08/22/17 12:39 IMPRESSION: 1. The colon is redundant and distended with contrast. No pericolonic inflammatory changes or evidence of obstruction. No CT evidence of appendicitis. 2. Stable bibasilar opacification, likely atelectasis. 3. Asymmetric left renal atrophy. Nonobstructive left-sided nephrolithiasis. 4. Stable prostatomegaly. 5. Stable abdominal aortic aneurysm at 4.6 cm. Follow-up recommendations below. RECOMMENDATIONS: Managing Abdominal Aortic Aneurysms 4.5-5.4 cm: Every 6 months. Recommend vascular consultation. *For abdominal aortas with maximum diameter of 2.6-2.9 cm meeting criteria for AAA (>50% of proximal normal segment). Reference: J Vasc Surg. 2009 Oct;50(4 Suppl):S2-49 D/ / 08/22/2017 14:11:28 Valentín Goodman MD / sven Interpreting Provider: Valentín Goodman MD <Javon Pompa - Last Filed: 08/22/17 19:41> Date of Encounter: 08/22/17 Internal Medicine - H&P: HPI History of present illness: Mr. Marr is a 66 year old male All Systems PM: A 10-system review of systems was performed and is negative for pertinent findings except as documented above in the HPI. - Constitutional Vitals: Temp Pulse Resp BP Pulse Ox 98.3 F 97 20 135/77 98 08/22/17 19:27 08/22/17 19:27 08/22/17 19:27 08/22/17 19:27 08/22/17 19:27 Internal Med - H&P Results - Labs CBC & Chem 7: 08/22/17 13:10 08/22/17 13:10 - Attending Attestation I examined this patient and my medical decision-making was reviewed with the ASSEMBLER [employer]. I agree with the documented findings, disposition and treatment plan as described except to the extent set forth below. Patient is a 66-year-old male with past medical history of COPD, CVA, dementia, anxiety and depression. He presents to the ED from longterm for altered mental status and shortness of breath. Patient has a UTI and also has acute kidney injury likely due to volume depletion. He has been started on IV fluids and IV Rocephin. Cultures are pending. Abdominal CT shows a stable abdominal aortic aneurysm at 4.6 cm. No other acute findings. CT of the head does not show any acute abnormality. Chest x-ray shows mild bibasilar airspace disease. Patient will be continued on all his home medications. Patient does have dementia and he is difficult to understand. I discussed with patient's daughter about his condition and plan of care. She understood and agreed. CODE STATUS full code. Heart rate 97, blood pressure 135/77, O2 sat 98%. Heart S1-S2 positive. Lungs bilateral good entry. Abdomen soft nontender.
[2017-08-22] MEDS ORDERED: Cyanocobalamin (B-12) 1,000 MCG/ML VIAL IM ONE (18:58)
[2017-08-22] MEDS: Insulin LISPRO 300 UNITS/3 ML VIAL SQ SCH (20:30)
[2017-08-22] MEDS: *HR* Heparin 5,000 UNIT/ML VIAL SQ SCH (20:44)
[2017-08-22] MEDS: cloNIDine HCl 0.1 MG TABLET PO SCH (20:44)
[2017-08-22] MEDS: Azithromycin 500 MG in D5% in Water 250 ML IVPB SCH (20:44)
[2017-08-22] MEDS: Gabapentin 300 MG CAPSULE PO SCH (20:45)
[2017-08-22 21:51] LABS: Adenovirus F 40/41 PCR Not detected (Not detect); Astrovirus PCR Not detected (Not detect); C.difficile Toxin A/B by PCR Not detected (Not detect); Campylobacter by PCR Not detected (Not detect); Cryptosporidium by PCR Not detected (Not detect); Cyclospora cayetanensis PCR Not detected (Not detect); E. coli O157 by PCR Not detected (Not detect); Entamoeba histolytica PCR Not detected (Not detect); Enteroaggregative E.coli(EAEC) Not detected (Not detect); Enteropathogenic E.coli(EPEC) Not detected (Not detect); Enterotoxigenic E.coli (ETEC) Not detected (Not detect); Giardia lamblia PCR Not detected (Not detect); Norovirus GI/GII PCR Not detected (Not detect); Plesiomonas shigelloides PCR Not detected (Not detect); Rotavirus A PCR Not detected (Not detect); Salmonella PCR Not detected (Not detect); Sapovirus PCR Not detected (Not detect); Shig/EnteroinvasiveE coli EIEC Not detected (Not detect); Shigalike tox-prod E coli STEC Not detected (Not detect); Vibrio PCR Not detected (Not detect); Vibrio cholerae PCR Not detected (Not detect); Yersinia enterocolitica PCR Not detected (Not detect)
[2017-08-22] MEDS: Budesonide/Formoterol 80/4.5 MDI IH SCH (21:54)
[2017-08-22] MEDS: Ipratropium/Albuterol Neb 3 ML IH SCH (23:27)
[2017-08-23] MEDS: Ipratropium/Albuterol Neb 3 ML IH SCH ×4 (04:04→22:58)
[2017-08-23 04:35] LABS: Basophils % 0.4 %; Eosinophils # 0.1 K/mcL (0.0-0.6); Eosinophils % 2.4 %; Hematocrit 31.6 % (37.5-50.1); Hemoglobin 10.2 g/dL (12.9-16.9); INR 1.3; Immature Granulocytes % 0.4 % (0-4); Lymphocytes # 0.7 K/mcL (0.6-4.6); Lymphocytes % 13.3 %; Mean Corpuscular HGB Conc 32.3 g/dL (31.6-35.5); Mean Corpuscular Hemoglobin 29.7 pg (28.0-33.3); Mean Corpuscular Volume 92.1 fL (83.0-100.0); Mean Platelet Volume 8.7 fL (9.4-12.4); Monocytes # 0.4 K/mcL (0.0-1.3); Monocytes % 6.6 %; Neutrophils # 4.2 K/mcL (1.6-8.9); Platelet Count 246 K/mcL (140-400); Red Blood Count 3.43 M/mcL (4.19-5.50); Red Cell Distribution Width 14.4 % (11.5-14.5); Segmented Neutrophils % 76.9 %
[2017-08-23 04:37] LABS: Activated Partial Thrombo Time 34.9 Seconds (26.0-36.0)
[2017-08-23 04:45] LABS: Hemoglobin A1C 5.9 %
[2017-08-23 04:47] LABS: Alanine Aminotransferase 30 Units/L (0-55); Albumin 2.8 g/dL (3.5-5.0); Albumin/Globulin Ratio 1.1 (1.1-2.2); Alkaline Phosphatase 90 Units/L (38-126); Aspartate Amino Transferase 36 Units/L (5-34); BUN/Creatinine Ratio 12 (6-26); Bilirubin,Total 0.7 mg/dL (0.2-1.2); Blood Urea Nitrogen 13 mg/dL (8-26); Calcium 8.5 mg/dL (8.6-10.8); Carbon Dioxide 26 mEq/L (19-29); Chloride 107 mEq/L (98-109); Chol/HDL Ratio 4.5 (0-4.9); Cholesterol 81 mg/dL (< 200); Globulin 2.5 g/dL (2.4-3.5); Glucose 145 mg/dL (70-99); HDL Cholesterol 18 mg/dL (40-59); LDL Cholesterol,Calculated 22 mg/dL (0-99); Magnesium 1.6 mg/dL (1.6-2.6); Osmolality,Calculated 293 (280-300); Potassium 3.8 mEq/L (3.5-4.5); Sodium 140 mEq/L (136-145); Total Protein 5.3 g/dL (6.0-8.3); Triglycerides 207 mg/dL (< 150); eGFR For African Americans > 60 (> 60); eGFR For Non-African Americans > 60 (> 60)
[2017-08-23] MEDS: *HR* Heparin 5,000 UNIT/ML VIAL SQ SCH ×2 (05:41→17:38)
--- NOTE | 2017-08-23 08:54 | Internal Med Progress Note ---
Date of Encounter: 08/23/17 Time of Encounter: 07:10 - Assessment and plan (1) UTI (urinary tract infection) Current Visit: Yes Status: Acute Assessment and plan: Acute encephalopathy - likely secondary to UTI, present on admission, likely gram-negative bacilli - patient seems to be back to baseline Continue empiric IV Rocephin Cultures - pending CT abdomen and pelvis - distended colon, stable bibasilar opacification, nonobstructive left-sided nephrolithiasis, stable abdominal aortic aneurysm at 4.6 cm Chest x-ray - mild bibasilar airspace disease CT head - no acute abnormality, chronic small vessel ischemic changes bilaterally, remote insult with encephalomalacia Lactic acid - 1.9 WBC - 5.4 Cardiac telemetry, aspiration precautions, fall precautions, monitor closely Qualifiers: Urinary tract infection type: site unspecified Hematuria presence: without hematuria Qualified Code(s): N39.0 - Urinary tract infection, site not specified (2) COSME (acute kidney injury) Current Visit: Yes Status: Acute Assessment and plan: Acute kidney injury on chronic kidney disease - probably due to volume depletion - now improved (3) COPD (chronic obstructive pulmonary disease) Current Visit: No Status: Chronic Assessment and plan: COPD, stable - not in exacerbation Continue DuoNeb breathing treatment, Symbicort, empiric IV antibiotics Chest x-ray - mild bibasilar airspace disease likely atelectasis Qualifiers: COPD type: unspecified COPD Qualified Code(s): J44.9 - Chronic obstructive pulmonary disease, unspecified (4) Dementia Current Visit: Yes Status: Chronic Assessment and plan: Moderate to severe dementia - probable Alzheimer's and vascular without behavioral disturbances Continue Namenda Supportive care if patient has acute delirium Qualifiers: Dementia type: Alzheimer's disease Alzheimer's disease onset: late-onset Dementia behavioral disturbance: without behavioral disturbance Qualified Code (s): G30.1 - Alzheimer's disease with late onset; F02.80 - Dementia in other diseases classified elsewhere without behavioral disturbance; F02.80 - Dementia in other diseases classified elsewhere without behavioral disturbance; F02.80 - Dementia in other diseases classified elsewhere without behavioral disturbance (5) Diabetes mellitus Current Visit: No Status: Chronic Assessment and plan: Type 2 diabetes mellitus, insulin-dependent, hyperglycemia Continue insulin sliding scale, glucose checks HbA1c - 5.9 Qualifiers: Diabetes mellitus type: type 2 Diabetes mellitus complication status: with hyperglycemia Diabetes mellitus assistant terminal manager insulin use: with assistant terminal manager use Qualified Code(s): E11.65 - Type 2 diabetes mellitus with hyperglycemia; Z79.4 - long term care pharmacist (current) use of insulin; Z79.4 - group home (current) use of insulin ; Z79.4 - long term care pharmacist (current) use of insulin; Z79.4 - group home (current) use of insulin (6) Essential hypertension Current Visit: No Status: Chronic Assessment and plan: Essential hypertension, controlled, monitor Continue home dose of Zestril, Clonidine, Bystolic (7) History of CVA (cerebrovascular accident) Current Visit: No Status: Chronic Assessment and plan: History of CVA in 2008 - patient has residual speech deficit No obvious residual hemiparesis Continue Aspirin, Plavix, Lipitor (8) DVT prophylaxis Current Visit: Yes Status: Acute Assessment and plan: Continue Heparin subcutaneous - Time Spent With Patient 25 - 35 minutes - Subjective Interval history: Examined this morning. Patient is awake. Patient has difficulty verbalizing with residual speech effects due to previous CVA. He does have dementia. He is overall a poor historian. He denies chest pain or shortness of breath at this time. Hemodynamically stable. No fever. Admitted for UTI and acute kidney injury. No acute events or complaints. - Constitutional Vitals: Temp Pulse Resp BP Pulse Ox 97.6 F 94 18 160/75 95 08/23/17 07:32 08/23/17 07:32 08/23/17 07:32 08/23/17 07:32 08/23/17 07:32 General appearance: Present: cooperative, A&O X 1, pleasant, no acute distress, answers questions appropriately (With several attempts) Exam: Patient does have difficulty verbalizing due to previous CVA. Does have advanced dementia. Overall poor historian. Chronically ill-appearing. Generalized weakness. - Head Head exam: Present: atraumatic - Eye Eye exam: Present: EOMI - ENT ENT exam: Present: mucous membranes dry - Respiratory Respiratory exam: Present: CTAB. Absent: rales, rhonchi, wheezes, tachypnea - Cardiovascular Cardiovascular exam: Present: RRR, +S1, +S2 - GI/Abdominal GI/Abdominal exam: Present: soft. Absent: distended, firm, guarding, tenderness - Extremities Exam Extremities exam: Present: radial pulses palpable and symmetrical. Absent: calf tenderness, cyanotic Additional comments: Patient had a recent left hip arthroplasty. Surgical scar looks good. Dorris in place. - Neurological Exam Neurological exam: Present: speech deficit (Patient does have residual speech deficit due to previous CVA). Absent: facial droop Additional comments: Patient does have baseline advanced dementia. He is oriented to person but not to place or time. Able to move all extremities. Internal Medicine: Result - Labs CBC & Chem 7: 08/23/17 03:51 08/23/17 03:51 Labs: Short CBC 08/23/17 Range/Units 03:51 WBC 5.4 (4.3-11.1) K/mcL Hgb 10.2 L (12.9-16.9) g/dL Hct 31.6 L (37.5-50.1) % Plt Count 246 (140-400) K/mcL Neutrophils # 4.2 (1.6-8.9) K/mcL BMP 08/23/17 03:51 Sodium 140 Potassium 3.8 Chloride 107 Carbon Dioxide 26 BUN 13 Creatinine 1.05 Glucose 145 H Calcium 8.5 L Liver Function 08/23/17 Range/Units 03:51 Total Bilirubin 0.7 (0.2-1.2) mg/dL AST 36 H (5-34) Units/L ALT 30 (0-55) Units/L Alkaline Phosphatase 90 (38-126) Units/L Albumin 2.8 L (3.5-5.0) g/dL - ABG Interpretation ABG results: ABG ABG pH 7.40 pH Units (7.32-7.45) 08/22/17 13:23 ABG pCO2 42 mmHg (35-45) 08/22/17 13:23 ABG pO2 73 mmHg (85-104) L 08/22/17 13:23 ABG O2 Saturation 94 % (95-98) L 08/22/17 13:23 PT/INR, D-dimer PT 14.0 Seconds (9.4-12.1) H 08/23/17 03:51 Consult Discharge Plan - Plan Referrals: Rafi De León MD [Primary Care Provider] -
[2017-08-23] MEDS: diazePAM 5 MG TABLET PO PRN ×2 (09:39→16:04)
[2017-08-23] MEDS: Gabapentin 300 MG CAPSULE PO SCH ×2 (09:39→20:40)
[2017-08-23] MEDS: Aspirin 81 MG TAB.CHEW PO SCH (09:39)
[2017-08-23] MEDS: Folic Acid 1 MG TABLET PO SCH (09:39)
[2017-08-23] MEDS: cloNIDine HCl 0.1 MG TABLET PO SCH ×3 (09:39→20:40)
[2017-08-23] MEDS: Pantoprazole 40 MG VIAL IVP SCH (09:45)
[2017-08-23] MEDS: Insulin LISPRO 300 UNITS/3 ML VIAL SQ SCH ×4 (09:57→20:41)
[2017-08-23] MEDS: Budesonide/Formoterol 80/4.5 MDI IH SCH ×2 (10:46→22:57)
[2017-08-23] MEDS ORDERED: cefTRIAXone 1,000 MG in SYRINGE 1 EACH IVPB SCH (16:00)
[2017-08-23] MEDS: Azithromycin 500 MG in D5% in Water 250 ML IVPB SCH (17:27)
[2017-08-23] MEDS: cefTRIAXone 1,000 MG in Water for inj. (sterile) 10 ML IVP SCH (17:34)
[2017-08-23] MEDS: Acetaminophen 325 MG TABLET PO PRN (20:40)
[2017-08-24] MEDS: Ipratropium/Albuterol Neb 3 ML IH SCH ×4 (04:23→21:45)
[2017-08-24 05:06] LABS: Basophils % 0.4 %; Eosinophils % 2.6 %; Hematocrit 30.9 % (37.5-50.1); Hemoglobin 9.7 g/dL (12.9-16.9); Immature Granulocytes % 0.4 % (0-4); Lymphocytes % 17.8 %; Mean Corpuscular HGB Conc 31.4 g/dL (31.6-35.5); Mean Corpuscular Hemoglobin 29.6 pg (28.0-33.3); Mean Corpuscular Volume 94.2 fL (83.0-100.0); Mean Platelet Volume 8.9 fL (9.4-12.4); Monocytes % 7.9 %; Platelet Count 249 K/mcL (140-400); Red Blood Count 3.28 M/mcL (4.19-5.50); Red Cell Distribution Width 14.5 % (11.5-14.5); Segmented Neutrophils % 70.9 %
[2017-08-24 05:07] LABS: Eosinophils # 0.1 K/mcL (0.0-0.6); Lymphocytes # 0.9 K/mcL (0.6-4.6); Monocytes # 0.4 K/mcL (0.0-1.3); Neutrophils # 3.5 K/mcL (1.6-8.9)
[2017-08-24 05:31] LABS: Alanine Aminotransferase 24 Units/L (0-55); Albumin 2.6 g/dL (3.5-5.0); Alkaline Phosphatase 89 Units/L (38-126); Aspartate Amino Transferase 28 Units/L (5-34); BUN/Creatinine Ratio 15 (6-26); Bilirubin,Total 0.5 mg/dL (0.2-1.2); Blood Urea Nitrogen 16 mg/dL (8-26); Calcium 8.6 mg/dL (8.6-10.8); Carbon Dioxide 28 mEq/L (19-29); Chloride 108 mEq/L (98-109); Globulin 2.5 g/dL (2.4-3.5); Glucose 145 mg/dL (70-99); Osmolality,Calculated 298 (280-300); Potassium 4.3 mEq/L (3.5-4.5); Sodium 142 mEq/L (136-145); Total Protein 5.1 g/dL (6.0-8.3); eGFR For African Americans > 60 (> 60); eGFR For Non-African Americans > 60 (> 60)
[2017-08-24] MEDS: *HR* Heparin 5,000 UNIT/ML VIAL SQ SCH ×2 (06:34→17:25)
[2017-08-24] MEDS: Insulin LISPRO 300 UNITS/3 ML VIAL SQ SCH ×4 (08:23→21:06)
[2017-08-24] MEDS: Gabapentin 300 MG CAPSULE PO SCH ×2 (08:24→21:05)
[2017-08-24] MEDS: Aspirin 81 MG TAB.CHEW PO SCH (08:24)
[2017-08-24] MEDS: cloNIDine HCl 0.1 MG TABLET PO SCH ×3 (08:24→21:05)
[2017-08-24] MEDS: Pantoprazole 40 MG VIAL IVP SCH (08:25)
[2017-08-24] MEDS: Folic Acid 1 MG TABLET PO SCH (08:28)
[2017-08-24] MEDS: Budesonide/Formoterol 80/4.5 MDI IH SCH ×2 (10:50→19:47)
[2017-08-24] MEDS: Acetaminophen 325 MG TABLET PO PRN (13:22)
[2017-08-24] MEDS: diazePAM 5 MG TABLET PO PRN (13:23)
--- NOTE | 2017-08-24 14:05 | Internal Med Progress Note ---
Date of Encounter: 08/24/17 Time of Encounter: 07:30 - Assessment and plan (1) UTI (urinary tract infection) Current Visit: Yes Status: Acute Assessment and plan: Acute encephalopathy - likely secondary to UTI, present on admission, likely gram-negative bacilli - patient seems to be back to baseline Continue empiric IV Rocephin Cultures - no growth CT abdomen and pelvis - distended colon, stable bibasilar opacification, nonobstructive left-sided nephrolithiasis, stable abdominal aortic aneurysm at 4.6 cm Chest x-ray - mild bibasilar airspace disease CT head - no acute abnormality, chronic small vessel ischemic changes bilaterally, remote insult with encephalomalacia Lactic acid - 1.9 WBC - 5.4 Cardiac telemetry, aspiration precautions, fall precautions, monitor closely 08/24 - patient continues to have agitation and confusion at times, but this is baseline for patient, hemodynamically stable Qualifiers: Urinary tract infection type: site unspecified Hematuria presence: without hematuria Qualified Code(s): N39.0 - Urinary tract infection, site not specified (2) COSME (acute kidney injury) Current Visit: Yes Status: Acute Assessment and plan: Acute kidney injury on chronic kidney disease - probably due to volume depletion - now resolved (3) COPD (chronic obstructive pulmonary disease) Current Visit: No Status: Chronic Assessment and plan: COPD, stable - not in exacerbation Continue DuoNeb breathing treatment, Symbicort, empiric IV Rocephin Chest x-ray - mild bibasilar airspace disease likely atelectasis Qualifiers: COPD type: unspecified COPD Qualified Code(s): J44.9 - Chronic obstructive pulmonary disease, unspecified (4) Dementia Current Visit: Yes Status: Chronic Assessment and plan: Moderate to severe dementia - probable Alzheimer's and vascular without behavioral disturbances Continue Namenda Supportive care if patient has acute delirium Qualifiers: Dementia type: Alzheimer's disease Alzheimer's disease onset: late-onset Dementia behavioral disturbance: without behavioral disturbance Qualified Code (s): G30.1 - Alzheimer's disease with late onset; F02.80 - Dementia in other diseases classified elsewhere without behavioral disturbance; F02.80 - Dementia in other diseases classified elsewhere without behavioral disturbance; F02.80 - Dementia in other diseases classified elsewhere without behavioral disturbance (5) Diabetes mellitus Current Visit: No Status: Chronic Assessment and plan: Type 2 diabetes mellitus, insulin-dependent, hyperglycemia Continue insulin sliding scale, glucose checks HbA1c - 5.9 Qualifiers: Diabetes mellitus type: type 2 Diabetes mellitus complication status: with hyperglycemia Diabetes mellitus [facility] insulin use: with marine oil terminal superintendent use Qualified Code(s): E11.65 - Type 2 diabetes mellitus with hyperglycemia; Z79.4 - shelter (current) use of insulin; Z79.4 - shelter (current) use of insulin ; Z79.4 - shelter (current) use of insulin; Z79.4 - marine oil terminal superintendent (current) use of insulin (6) Essential hypertension Current Visit: No Status: Chronic Assessment and plan: Essential hypertension, controlled, monitor Continue home dose of Zestril, Clonidine, Bystolic has been changed to Lopressor (7) History of CVA (cerebrovascular accident) Current Visit: No Status: Chronic Assessment and plan: History of CVA in 2008 - patient has residual speech deficit, left side hemiparesis Initially thought to have no obvious residual hemiparesis Continue Aspirin, Plavix, Lipitor (8) DVT prophylaxis Current Visit: Yes Status: Acute Assessment and plan: Continue Heparin subcutaneous - Time Spent With Patient 25 - 35 minutes - Subjective Interval history: Examined this morning. Patient is awake. Patient has difficulty verbalizing due to residual speech effects due to previous CVA. He does have dementia. He is overall a poor historian. He denies chest pain or shortness of breath at this time. Hemodynamically stable. No fever. Patient continues to have episodes of agitation and confusion. He does have moderate to severe dementia probably vascular and Alzheimer's. He does need supportive care. Admitted for UTI and acute kidney injury. No acute events or complaints. Anticipate discharge to [facility] soon. - Constitutional Vitals: Temp Pulse Resp BP Pulse Ox 97.9 F 83 18 137/65 93 08/24/17 11:05 08/24/17 11:05 08/24/17 11:05 08/24/17 11:05 08/24/17 11:05 General appearance: Present: cooperative, A&O X 1, pleasant, no acute distress, answers questions appropriately (With several attempts) Exam: Patient does have difficulty verbalizing due to previous CVA. Does have advanced dementia. Overall poor historian. Chronically ill-appearing. Generalized weakness. - Head Head exam: Present: atraumatic - Eye Eye exam: Present: EOMI - ENT ENT exam: Present: mucous membranes dry - Respiratory Respiratory exam: Present: CTAB. Absent: rales, rhonchi, wheezes, tachypnea - Cardiovascular Cardiovascular exam: Present: RRR, +S1, +S2 - GI/Abdominal GI/Abdominal exam: Present: soft. Absent: distended, firm, guarding, tenderness - Extremities Exam Extremities exam: Present: radial pulses palpable and symmetrical. Absent: calf tenderness, cyanotic, pedal edema Additional comments: Patient had a recent left hip arthroplasty. Surgical scar looks good. [place] in place. - Neurological Exam Neurological exam: Present: speech deficit. Absent: facial droop Additional comments: Patient does have baseline advanced dementia. He is oriented to person but not to place or time. Able to move all extremities. Patient does have some mild left-sided hemiparesis from previous CVA. Internal Medicine: Result - Labs CBC & Chem 7: 08/24/17 04:22 08/24/17 04:22 Labs: Short CBC 08/24/17 Range/Units 04:22 WBC 4.9 (4.3-11.1) K/mcL Hgb 9.7 L (12.9-16.9) g/dL Hct 30.9 L (37.5-50.1) % Plt Count 249 (140-400) K/mcL Neutrophils # 3.5 (1.6-8.9) K/mcL BMP 08/24/17 04:22 Sodium 142 Potassium 4.3 Chloride 108 Carbon Dioxide 28 BUN 16 Creatinine 1.08 Glucose 145 H Calcium 8.6 Liver Function 08/24/17 Range/Units 04:22 Total Bilirubin 0.5 (0.2-1.2) mg/dL AST 28 (5-34) Units/L ALT 24 (0-55) Units/L Alkaline Phosphatase 89 (38-126) Units/L Albumin 2.6 L (3.5-5.0) g/dL - ABG Interpretation ABG results: ABG ABG pH 7.40 pH Units (7.32-7.45) 08/22/17 13:23 ABG pCO2 42 mmHg (35-45) 08/22/17 13:23 ABG pO2 73 mmHg (85-104) L 08/22/17 13:23 ABG O2 Saturation 94 % (95-98) L 08/22/17 13:23 PT/INR, D-dimer PT 14.0 Seconds (9.4-12.1) H 08/23/17 03:51 Consult Discharge Plan - Plan Referrals: Rafi De León MD [Primary Care Provider] -
[2017-08-24] MEDS: cefTRIAXone 1,000 MG in Water for inj. (sterile) 10 ML IVP SCH (16:18)
[2017-08-24] MEDS ORDERED: *HR* HYDROcodone/Acet 5/325 mg TABLET PO ONE (16:54)
--- NOTE | 2017-08-24 16:59 | Electrocardiograph Report ---
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
[2017-08-24] MEDS: Azithromycin 500 MG in D5% in Water 250 ML IVPB SCH (17:27)
[2017-08-25] MEDS: Ipratropium/Albuterol Neb 3 ML IH SCH ×2 (03:37→10:30)
[2017-08-25 04:34] LABS: Basophils % 0.5 %; Eosinophils # 0.1 K/mcL (0.0-0.6); Eosinophils % 2.1 %; Hematocrit 31.4 % (37.5-50.1); Hemoglobin 10.1 g/dL (12.9-16.9); Immature Granulocytes % 0.3 % (0-4); Lymphocytes # 0.9 K/mcL (0.6-4.6); Lymphocytes % 14.7 %; Mean Corpuscular HGB Conc 32.2 g/dL (31.6-35.5); Mean Corpuscular Hemoglobin 29.6 pg (28.0-33.3); Mean Corpuscular Volume 92.1 fL (83.0-100.0); Mean Platelet Volume 8.9 fL (9.4-12.4); Monocytes # 0.4 K/mcL (0.0-1.3); Neutrophils # 4.4 K/mcL (1.6-8.9); Platelet Count 257 K/mcL (140-400); Red Blood Count 3.41 M/mcL (4.19-5.50); Red Cell Distribution Width 14.3 % (11.5-14.5); Segmented Neutrophils % 75.4 %
[2017-08-25 05:22] LABS: Alanine Aminotransferase 23 Units/L (0-55); Alkaline Phosphatase 99 Units/L (38-126); Aspartate Amino Transferase 27 Units/L (5-34); BUN/Creatinine Ratio 13 (6-26); Bilirubin,Total 0.6 mg/dL (0.2-1.2); Blood Urea Nitrogen 13 mg/dL (8-26); Calcium 8.6 mg/dL (8.6-10.8); Carbon Dioxide 25 mEq/L (19-29); Chloride 101 mEq/L (98-109); Globulin 2.9 g/dL (2.4-3.5); Glucose 146 mg/dL (70-99); Osmolality,Calculated 285 (280-300); Potassium 3.9 mEq/L (3.5-4.5); Sodium 136 mEq/L (136-145); Total Protein 5.9 g/dL (6.0-8.3); eGFR For African Americans > 60 (> 60); eGFR For Non-African Americans > 60 (> 60)
[2017-08-25] MEDS: *HR* Heparin 5,000 UNIT/ML VIAL SQ SCH (05:53)
[2017-08-25] MEDS: diazePAM 5 MG TABLET PO PRN (06:32)
[2017-08-25] MEDS: Folic Acid 1 MG TABLET PO SCH (09:35)
[2017-08-25] MEDS: Insulin LISPRO 300 UNITS/3 ML VIAL SQ SCH (09:35)
[2017-08-25] MEDS: Pantoprazole 40 MG VIAL IVP SCH (09:35)
[2017-08-25] MEDS: Gabapentin 300 MG CAPSULE PO SCH (09:36)
[2017-08-25] MEDS: cloNIDine HCl 0.1 MG TABLET PO SCH (09:36)
[2017-08-25] MEDS: Aspirin 81 MG TAB.CHEW PO SCH (09:36)
[2017-08-25] MEDS: Budesonide/Formoterol 80/4.5 MDI IH SCH (10:30)
--- NOTE | 2017-08-25 10:44 | Discharge Summary ---
Date of Encounter: 08/25/17 Time of Encounter: 07:30 - Discharge Diagnosis (1) UTI (urinary tract infection) Priority: Primary Status: Acute Comments: Acute encephalopathy - likely secondary to UTI, present on admission, likely gram-negative bacilli - patient seems to be back to baseline Continue Levaquin on discharge Cultures - no growth CT abdomen and pelvis - distended colon, stable bibasilar opacification, nonobstructive left-sided nephrolithiasis, stable abdominal aortic aneurysm at 4.6 cm Chest x-ray - mild bibasilar airspace disease CT head - no acute abnormality, chronic small vessel ischemic changes bilaterally, remote insult with encephalomalacia Lactic acid - 1.9 WBC - 5.8 Cardiac telemetry, aspiration precautions, fall precautions, monitor closely 08/24 - patient continues to have agitation and confusion at times, but this is baseline for patient, hemodynamically stable 08/25 - patient at baseline mental status, he does continue to have confusion at times, hemodynamically stable Return if symptoms worsen, follow up with PCP Qualifiers: Urinary tract infection type: site unspecified Hematuria presence: without hematuria Qualified Code(s): N39.0 - Urinary tract infection, site not specified (2) COSME (acute kidney injury) Priority: Primary Status: Acute Comments: Acute kidney injury on chronic kidney disease stage III - probably due to volume depletion COSME now resolved (3) COPD (chronic obstructive pulmonary disease) Priority: Primary Status: Chronic Comments: COPD, stable - not in exacerbation Continue DuoNeb breathing treatment, Symbicort Chest x-ray - mild bibasilar airspace disease likely atelectasis Qualifiers: COPD type: unspecified COPD Qualified Code(s): J44.9 - Chronic obstructive pulmonary disease, unspecified (4) Dementia Priority: Primary Status: Chronic Comments: Moderate to severe dementia - probable Alzheimer's and vascular without behavioral disturbances - patient seems to be at baseline mental status, he does have confusion at times Continue Namenda Supportive care if patient has acute delirium Qualifiers: Dementia type: Alzheimer's disease Alzheimer's disease onset: late-onset Dementia behavioral disturbance: without behavioral disturbance Qualified Code (s): G30.1 - Alzheimer's disease with late onset; F02.80 - Dementia in other diseases classified elsewhere without behavioral disturbance; F02.80 - Dementia in other diseases classified elsewhere without behavioral disturbance; F02.80 - Dementia in other diseases classified elsewhere without behavioral disturbance (5) Diabetes mellitus Priority: Secondary Status: Chronic Comments: Type 2 diabetes mellitus, insulin-dependent, hyperglycemia Continue home dose of insulin HbA1c - 5.9 Qualifiers: Diabetes mellitus type: type 2 Diabetes mellitus complication status: with hyperglycemia Diabetes mellitus longterm insulin use: with longterm use Qualified Code(s): E11.65 - Type 2 diabetes mellitus with hyperglycemia; Z79.4 - correction (current) use of insulin; Z79.4 - terminal operator (current) use of insulin ; Z79.4 - terminal operator (current) use of insulin; Z79.4 - correction (current) use of insulin (6) Essential hypertension Priority: Secondary Status: Chronic Comments: Essential hypertension, controlled, monitor Continue home dose of Zestril, Clonidine Continue home dose of Bystolic (7) History of CVA (cerebrovascular accident) Priority: Secondary Status: Chronic Comments: History of CVA in 2008 - patient has residual speech deficit and residual left side hemiparesis Initially thought to have no obvious residual hemiparesis Continue Aspirin, Plavix, Lipitor - Discharge Medications Prescriptions: Ipratropium/Albuterol Neb [Duoneb] 3 ml IH Q6HR PRN #30 inhsol PRN Reason: Shortness Of Breath/Wheezing diazePAM [Valium] 5 mg PO TID PRN #7 tablet PRN Reason: Anxiety Gabapentin [Neurontin] 300 mg PO BID #20 capsule HYDROcodone/Acet 5/325 mg [[place] 5-325 mg] 1 tab PO Q6H PRN #7 tablet PRN Reason: Pain Levofloxacin [Levaquin] 500 mg PO Q24H 5 Days #5 tablet Memantine HCl 10 mg PO BID #30 tablet Tramadol HCl [Ultram] 50 mg PO Q4H PRN #7 tablet PRN Reason: Pain Home Medications: Acetaminophen [Tylenol] 325 mg PO Q6HR PRN 08/14/17 [History] Aspirin 81 mg PO DAILY 08/14/17 [History] Atorvastatin [Lipitor] 40 mg PO HS 08/14/17 [History] Clopidogrel [Plavix] 75 mg PO DAILY 08/14/17 [History] Fluticasone/Salmeterol [Advair 250-50 Diskus] 1 puff IH BID 08/14/17 [History] Insulin ASPART [NovoLOG] 2 - 10 unit SQ TID PRN 08/14/17 [History] Lisinopril [Zestril] 10 mg PO BID 08/14/17 [History] Nebivolol HCl [Bystolic] 10 mg PO DAILY 08/14/17 [History] Oxybutynin Chloride [Ditropan Xl] 5 mg PO DAILY 08/14/17 [History] Polyethylene Glycol 3350 [MiraLAX Powder Bulk 17.9 Oz] 17 gm PO DAILY 08/14/17 [ History] Tamsulosin [Flomax] 0.4 mg PO DAILY 08/14/17 [History] cloNIDine HCl [Clonidine HCl] 0.2 mg PO TID 08/14/17 [History] Cyanocobalamin (B-12) [Vitamin B12] 1,000 mcg PO DAILY #30 tablet 08/17/17 [Rx] Folic Acid 1 mg PO DAILY #30 tablet 08/17/17 [Rx] Gabapentin [Neurontin] 300 mg PO BID #20 capsule 08/25/17 [Rx] HYDROcodone/Acet 5/325 mg [[place] 5-325 mg] 1 tab PO Q6H PRN #7 tablet 08/25/17 [ Rx] Ipratropium/Albuterol Neb [Duoneb] 3 ml IH Q6HR PRN #30 inhsol 08/25/17 [Rx] Levofloxacin [Levaquin] 500 mg PO Q24H 5 Days #5 tablet 08/25/17 [Rx] Memantine HCl 10 mg PO BID #30 tablet 08/25/17 [Rx] Tramadol HCl [Ultram] 50 mg PO Q4H PRN #7 tablet 08/25/17 [Rx] diazePAM [Valium] 5 mg PO TID PRN #7 tablet 08/25/17 [Rx] Allergies/Adverse Reactions: 3 Allergy/AdvReac Type Severity Reaction Status Date / Time No Known Allergies Allergy Verified 06/22/15 23:58 Date of admission: 08/22/17 17:50 Primary care physician: Rafi De León MD Consults: 08/22/17 18:04 Consult to Occupational Therapy [CONS] Routine Comment: Evaluate, develop and implement POC Reason for Consult: Patient had recent fx of left hip and resides at [facility]. Please assess for strength, stability, safety, ambulation, and assistive needs for post-discharge planning. 08/22/17 18:06 Consult to Physical Therapy [CONS] Routine Comment: Evaluate, develop and implement POC Reason for Consult: Patient had recent fx of left hip and resides at [facility]. Please assess for strength, stability, safety, ambulation, and assistive needs for post-discharge planning. Anticipated date of discharge: 08/25/17 - Patient Status Disposition: Transfer SNF Condition: Fair Functional capacity at discharge: bed bound Overall status at discharge: patient is progressing back to baseline - Discharge Instructions Follow Up With: Rafi De León MD [Primary Care Provider] - - Diet and Activity Activity: as per physical therapy, increase activity as tolerated Diet: advance to your usual diet Hospital course: Mr. Marr is a 66 year old male with past medical history of CVA, advanced dementia, COPD, anxiety and depression. He presented to the ED for altered mental status and shortness of breath. He is a resident at a [facility]. He does have residual speech deficits and left side hemiparesis. Patient is admitted for acute encephalopathy likely secondary to UTI present on admission. He was started on IV empiric Rocephin. Cultures are negative. White count is within normal limits. CT of the head is negative for any acute changes. Patient also had some mild acute kidney injury on chronic kidney disease due to volume depletion which is now resolved. She was continued on DuoNeb breathing treatment and Symbicort for COPD. Continue Namenda for his moderate to severe dementia likely due to Alzheimer's and vascular. He was on DVT prophylaxis and he was also continued on aspirin and Plavix and Lipitor. Patient was continued on home medications for blood pressure and was on insulin sliding scale for diabetes. Patient did have an episode where he had frequent PVCs. His Bystolic was changed to Lopressor and his PVCs resolved. At this time patient can continue his regular home dose of Bystolic. He can follow up as outpatient with his primary care physician. Patient seems to be back to baseline mental status at this time. No other acute events or complications during his stay. Patient requires assistance for ambulation and also for activities of daily living. Overall poor prognosis. Patient is being discharged in stable condition at this time. No family members at the time of discharge. - Time Spent with Patient Total time spent providing and/or coordinating discharge services: Greater than 30 minutes - Constitutional Vitals: Temp Pulse Resp BP Pulse Ox 97.9 F 79 16 144/74 97 08/25/17 07:23 08/25/17 07:23 08/25/17 10:30 08/25/17 07:23 08/25/17 10:30 General appearance: Present: cooperative, A&O X 1, pleasant, no acute distress, answers questions appropriately (With several attempts) Exam: Patient does have difficulty verbalizing due to previous CVA. Does have advanced dementia. Overall poor historian. Chronically ill-appearing. Generalized weakness. He seems to be at baseline mental status. - Head Head exam: Present: atraumatic Additional comments: Patient does have scaling over his face and patient has been scratching, and this has caused mild bleeding - Eye Eye exam: Present: EOMI - ENT ENT exam: Present: mucous membranes moist - Respiratory Respiratory exam: Present: CTAB. Absent: accessory muscle use, chest wall tenderness, rales, rhonchi, wheezes, tachypnea - Cardiovascular Cardiovascular exam: Present: RRR, +S1, +S2 - GI/Abdominal GI/Abdominal exam: Present: soft. Absent: distended, firm, guarding, tenderness - Extremities Exam Extremities exam: Present: radial pulses palpable and symmetrical. Absent: calf tenderness, cyanotic, pedal edema Additional comments: Patient had a recent left hip arthroplasty. Surgical scar looks good. [place] in place. - Neurological Exam Neurological exam: Present: speech deficit. Absent: facial droop Additional comments: Patient does have baseline advanced dementia. He is oriented to person but not to place or time. Able to move extremities. Patient does have left-sided hemiparesis from previous CVA. At baseline mental status.
--- NOTE | 2017-08-25 11:00 | Physician Discharge Referral ---
ExtendedCare Referral Info Provider in Charge after Transfer: PCP Institutional Level of Care: Skilled - Diagnosis (1) UTI (urinary tract infection) Priority: Primary Status: Acute (2) COSME (acute kidney injury) Priority: Primary Status: Acute (3) COPD (chronic obstructive pulmonary disease) Priority: Primary Status: Chronic (4) Dementia Priority: Primary Status: Chronic (5) Diabetes mellitus Priority: Secondary Status: Chronic (6) Essential hypertension Priority: Secondary Status: Chronic (7) History of CVA (cerebrovascular accident) Priority: Secondary Status: Chronic Prognosis: Fair Aware of Diagnosis: Family Aware of Prognosis: Family - Transfer Medications Prescriptions: Ipratropium/Albuterol Neb [Duoneb] 3 ml IH Q6HR PRN #30 inhsol PRN Reason: Shortness Of Breath/Wheezing Levofloxacin [Levaquin] 500 mg PO Q24H 5 Days #5 tablet Home Medications: Acetaminophen [Tylenol] 325 mg PO Q6HR PRN 08/14/17 [History] Aspirin 81 mg PO DAILY 08/14/17 [History] Atorvastatin [Lipitor] 40 mg PO HS 08/14/17 [History] Clopidogrel [Plavix] 75 mg PO DAILY 08/14/17 [History] Fluticasone/Salmeterol [Advair 250-50 Diskus] 1 puff IH BID 08/14/17 [History] Gabapentin [Neurontin] 300 mg PO BID 08/14/17 [History] Insulin ASPART [NovoLOG] 2 - 10 unit SQ TID PRN 08/14/17 [History] Lisinopril [Zestril] 10 mg PO BID 08/14/17 [History] Memantine HCl 10 mg PO BID 08/14/17 [History] Nebivolol HCl [Bystolic] 10 mg PO DAILY 08/14/17 [History] Oxybutynin Chloride [Ditropan Xl] 5 mg PO DAILY 08/14/17 [History] Polyethylene Glycol 3350 [MiraLAX Powder Bulk 17.9 Oz] 17 gm PO DAILY 08/14/17 [ History] Tamsulosin [Flomax] 0.4 mg PO DAILY 08/14/17 [History] cloNIDine HCl [Clonidine HCl] 0.2 mg PO TID 08/14/17 [History] diazePAM [Valium] 5 mg PO TID PRN 08/14/17 [History] Cyanocobalamin (B-12) [Vitamin B12] 1,000 mcg PO DAILY #30 tablet 08/17/17 [Rx] Folic Acid 1 mg PO DAILY #30 tablet 08/17/17 [Rx] HYDROcodone/Acet 5/325 mg [[place] 5-325 mg] 1 tab PO Q6H PRN #14 tablet 08/17/17 [Rx] Tramadol HCl [Ultram] 50 mg PO Q4H PRN #14 tablet 08/17/17 [Rx] Ipratropium/Albuterol Neb [Duoneb] 3 ml IH Q6HR PRN #30 inhsol 08/25/17 [Rx] Levofloxacin [Levaquin] 500 mg PO Q24H 5 Days #5 tablet 08/25/17 [Rx] Allergies/Adverse Reactions: 3 Allergy/AdvReac Type Severity Reaction Status Date / Time No Known Allergies Allergy Verified 06/22/15 23:58 - Respiratory Orders Smoking Cessation: Smoking cessation has been advised. For more information, call the [place] Tobacco Quit Line at 0-417-PPMO-NOW. - Ancillary Orders May use pressure relief devices daily prn - Advance Directives Code Status: Full Code - Mobility Orders Ambulate - Rehabiliation Orders Rehab Orders: ROM Exercises, Evaluation for Physical Therapy, Evaluation for Occupational Therapy - Treatments Skin tear care topically daily PRN per policy - Diet Orders Cardiac CERTIFICATION: I certify that the transfer of the above named patient to an Extended Care Facility is necessary for the continuing treatment of the diagnosis listed. The above information is true and accurate reflection of patient's current condition. Confidential - Redisclosure prohibited without a patient's written consent.
[2017-08-25 11:07] VITALS: BP 97/60
--- NOTE | 2017-08-26 08:17 | Electrocardiograph Report ---
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
== END 2017-08-25 13:49 | DRG 689 ==
LOC: EMEROO 12:30 → 3BNU 12:30
PROVIDERS: ADMIT Nurse Practitioner Family; ATTEND Registered Nurse